=== PATIENT | female | born 1980 | race Caucasian/White ===

== ENCOUNTER → 2016-09-11 | Outpatient (REF) | payer OTHER | LOC: M LAB REF 12:56 | PROVIDERS: ATTEND Physician Assistant | DX: B33.8 Other specified viral diseases (principal) ==

== ENCOUNTER → 2017-01-10 | Outpatient (CLI) | payer OTHER ==
[2017-01-10 07:12] LABS: MEAN CORPUSCULAR HGB CONC 34.3 g/dl (32.0-36.5); MEAN CORPUSCULAR VOLUME 87.4 fl (80.0-96.0); RED CELL DISTRIBUTION WIDTH 12.1 % (11.5-14.5); WHITE BLOOD COUNT 6.8 K/mm3 (4.0-10.0)
[2017-01-10 07:40] LABS: ALBUMIN 3.6 GM/DL (3.2-5.2); ALBUMIN/GLOBULIN RATIO 0.92 (1.00-1.93); ALKALINE PHOSPHATASE 41 U/L (45-117); ALT/SGPT 15 U/L (12-78); ANION GAP 11 MEQ/L (8-16); AST/SGOT 5 U/L (15-37); BILIRUBIN,TOTAL 0.6 MG/DL (0.2-1.0); BLOOD UREA NITROGEN 13 MG/DL (7-18); CALCIUM LEVEL 8.5 MG/DL (8.5-10.1); CARBON DIOXIDE LEVEL 23 MEQ/L (21-32); CHLORIDE LEVEL 105 MEQ/L (98-107); CHOLESTEROL LEVEL 176 MG/DL (<200); CREATININE FOR GFR 0.83 MG/DL (0.55-1.02); GLOMERULAR FILTRATION RATE > 60.0 (>60); GLUCOSE, FASTING 105 MG/DL (70-105); POTASSIUM SERUM 4.2 MEQ/L (3.5-5.1); SODIUM LEVEL 139 MEQ/L (136-145); TOTAL PROTEIN 7.5 GM/DL (6.4-8.2); TRIGLYCERIDES LEVEL 140 MG/DL (<150)
== END ==
LOC: M LAB 06:37
PROVIDERS: ATTEND Nurse Practitioner Adult Health
DX: Z00.00 Encounter for general adult medical examination without abnormal findings (principal)

== ENCOUNTER → 2017-09-03 | Outpatient (REF) | payer OTHER | LOC: M LAB REF 11:47 | PROVIDERS: ATTEND Physician Assistant | DX: R50.9 Fever, unspecified (principal) ==

== ENCOUNTER → 2017-10-16 | Outpatient (CLI) | payer MEDICAID ==
[~2017-10-16] MED LIST: E-Z-GAS II EFFERVESCENT PACKET (SODIUM BICARB./CITRIC ACID/SIMETHICONE) As Ordered; E-Z-HD 98% w/w 340GM SUSP BTL As Ordered; E-Z-PAQUE 96% w/w SUSP 176GM BTL As Ordered
== END ==
LOC: M RAD 09:03
DX: J39.2 Other diseases of pharynx (principal); R05 Cough
CPT/HCPCS: 74241

== ENCOUNTER → 2017-11-04 | Outpatient (CLI) | payer OTHER, MEDICAID ==
[~2017-11-04] MED LIST changes: -E-Z-GAS II EFFERVESCENT PACKET (SODIUM BICARB./CITRIC ACID/SIMETHICONE) As Ordered; -E-Z-HD 98% w/w 340GM SUSP BTL As Ordered; -E-Z-PAQUE 96% w/w SUSP 176GM BTL As Ordered; +METHACHOLINE KIT (J7674) INH
== END ==
LOC: M CARPUL 12:46
DX: J39.2 Other diseases of pharynx (principal); R05 Cough
CPT/HCPCS: J7674

== ENCOUNTER 2018-08-13 03:48 | Emergency (ER) | payer OTHER, MEDICAID ==
[2018-08-13] MEDS: LevoFLOXacin 500 MG TABLET PO (05:25)
== END 2018-08-13 05:28 | disposition home or self-care (01) ==
LOC: M ED 03:48
DX: J01.90 Acute sinusitis, unspecified (principal); Z88.0 Allergy status to penicillin
CPT/HCPCS: 99282

== ENCOUNTER → 2018-10-06 | Outpatient (CLI) | payer OTHER ==
[~2018-10-06] MED LIST changes: +DESO1TAB5; +DIFL200T PO; +LEVA1TAB2 PO; -METHACHOLINE KIT (J7674) INH; +MUPI2OI
--- NOTE | 2018-10-06 16:34 | REP ---
MR angiography the brain without contrast: History: Positive family history of montero aneurysm . Technique: 3-D [id number] MR angiography of the brain is acquired in the usual fashion and maximal intensity projection images were generated in rotational format about the vertical and horizontal axes. In addition, source axial T1-weighted images are viewed in cine mode. MR angiographic findings: The distal vertebral arteries are patent and co-dominant. Basilar artery is a little tortuous but widely patent. The posterior cerebral and superior cerebellar vessels are normal and symmetric. The distal internal carotid arteries are unremarkable. Anterior and middle cerebral arteries appear intact. There is no visible montero aneurysm or arteriovenous malformation. Impression: Unremarkable MR angiography the brain. Electronically Signed by Carlos Boyle MD 10/06/2018 04:26 P
== END ==
LOC: M RAD 15:15
PROVIDERS: ATTEND Nurse Practitioner Adult Health
DX: I72.9 Aneurysm of unspecified site (principal)

== ENCOUNTER 2019-06-04 07:20 | Emergency (ER) | payer OTHER ==
[~2019-06-04] VITALS: Ht 170.2 cm; Wt 68.9 kg
[2019-06-04] MEDS ORDERED: CEPH500C (07:27)
[2019-06-04] MEDS ORDERED: FLUC150T (07:27)
[2019-06-04 08:42] VITALS: BP 125/78
== END 2019-06-04 09:02 | disposition home or self-care (01) ==
LOC: M ED 07:20
DX: S90.415A Abrasion, left lesser toe(s), initial encounter (principal); W22.09XA Striking against other stationary object, initial encounter; Y92.512 Supermarket, store or market as the place of occurrence of the external cause; Z88.0 Allergy status to penicillin; Z79.899 Other long term (current) drug therapy

== ENCOUNTER → 2019-10-04 | Outpatient (REF) | payer OTHER ==
[~2019-10-04] MED LIST changes: +CEPH500C; +FLUC150T
[2019-10-04 14:43] LABS: AMORPHOUS SEDIMENT SMALL (NEGATIVE); APPEARANCE, URINE CLEAR (CLEAR); BACTERIA, URINE AUTO NEGATIVE (NEGATIVE); BILIRUBIN, URINE AUTO NEGATIVE (NEGATIVE); BLOOD, URINE BLOOD NEGATIVE (NEGATIVE); COLOR, URINE YELLOW (YELLOW); GLUCOSE, URINE (UA) AUTO NEGATIVE (NEGATIVE); KETONE, URINE AUTO NEGATIVE (NEGATIVE); LEUKOCYTE ESTERASE, URINE AUTO TRACE (NEGATIVE); MUCUS, URINE SMALL (NEGATIVE); NITRITE, URINE AUTO NEGATIVE (NEGATIVE); PROTEIN, URINE AUTO NEGATIVE (NEGATIVE); RBC, URINE AUTO 0 /HPF (0-3); SPECIFIC GRAVITY URINE AUTO 1.027 (1.002-1.035); SQUAMOUS EPITHELIAL CELL UR AU 3 /HPF (0-6); UROBILINOGEN, URINE AUTO 0.2 mg/dL (0.0-2.0); WBC, URINE AUTO 3 /HPF (0-3)
== END ==
LOC: M LAB REF 14:12
PROVIDERS: ATTEND Physician Assistant Medical
DX: N39.0 Urinary tract infection, site not specified (principal)

== ENCOUNTER → 2019-10-23 | Outpatient (REF) | payer OTHER ==
[2019-10-23 14:35] LABS: APPEARANCE, URINE HAZY (CLEAR); BACTERIA, URINE AUTO NEGATIVE (NEGATIVE); BILIRUBIN, URINE AUTO NEGATIVE (NEGATIVE); BLOOD, URINE BLOOD NEGATIVE (NEGATIVE); COLOR, URINE YELLOW (YELLOW); GLUCOSE, URINE (UA) AUTO NEGATIVE (NEGATIVE); KETONE, URINE AUTO NEGATIVE (NEGATIVE); LEUKOCYTE ESTERASE, URINE AUTO NEGATIVE (NEGATIVE); MUCUS, URINE SMALL (NEGATIVE); NITRITE, URINE AUTO NEGATIVE (NEGATIVE); PROTEIN, URINE AUTO NEGATIVE (NEGATIVE); RBC, URINE AUTO 0 /HPF (0-3); SPECIFIC GRAVITY URINE AUTO 1.028 (1.002-1.035); SQUAMOUS EPITHELIAL CELL UR AU 3 /HPF (0-6); UROBILINOGEN, URINE AUTO 0.2 mg/dL (0.0-2.0); WBC, URINE AUTO 1 /HPF (0-3)
== END ==
LOC: M LAB REF 14:18
PROVIDERS: ATTEND Physician Assistant
DX: N39.0 Urinary tract infection, site not specified (principal)

== ENCOUNTER → 2020-05-10 | Outpatient (REF) | payer OTHER ==
[2020-05-10 18:51] LABS: APPEARANCE, URINE CLEAR (CLEAR); BACTERIA, URINE AUTO NEGATIVE (NEGATIVE); BILIRUBIN, URINE AUTO NEGATIVE (NEGATIVE); BLOOD, URINE BLOOD 1+ (NEGATIVE); COLOR, URINE YELLOW (YELLOW); GLUCOSE, URINE (UA) AUTO NEGATIVE (NEGATIVE); KETONE, URINE AUTO NEGATIVE (NEGATIVE); LEUKOCYTE ESTERASE, URINE AUTO NEGATIVE (NEGATIVE); NITRITE, URINE AUTO NEGATIVE (NEGATIVE); PROTEIN, URINE AUTO NEGATIVE (NEGATIVE); RBC, URINE AUTO 0 /HPF (0-3); SPECIFIC GRAVITY URINE AUTO 1.019 (1.002-1.035); SQUAMOUS EPITHELIAL CELL UR AU 3 /HPF (0-6); UROBILINOGEN, URINE AUTO 0.2 mg/dL (0.0-2.0); WBC, URINE AUTO 1 /HPF (0-3)
== END ==
LOC: M LAB REF 16:00
PROVIDERS: ATTEND Physician Assistant Medical
DX: N39.0 Urinary tract infection, site not specified (principal)

== ENCOUNTER → 2020-05-19 | Outpatient (REF) | payer OTHER | LOC: M LAB REF 08:15 | PROVIDERS: ATTEND Physician Assistant | DX: D18.01 Hemangioma of skin and subcutaneous tissue (principal) ==

== ENCOUNTER → 2020-06-20 | Outpatient (REF) | payer OTHER | LOC: M SFHCPLAZ 10:16 | PROVIDERS: ATTEND Nurse Practitioner Adult Health | DX: R35.0 Frequency of micturition (principal) ==

== ENCOUNTER → 2020-07-01 | Outpatient (CLI) | payer OTHER ==
[2020-07-01 11:16] LABS: HEMATOCRIT 40.4 % (36.0-47.0); HEMOGLOBIN 13.6 g/dl (12.0-15.5); MEAN CORPUSCULAR HEMOGLOBIN 29.2 pg (27.0-33.0); MEAN CORPUSCULAR HGB CONC 33.7 g/dl (32.0-36.5); MEAN CORPUSCULAR VOLUME 86.9 fl (80.0-96.0); PLATELET COUNT, AUTOMATED 277 10^3/uL (150-450); RED BLOOD COUNT 4.65 10^6/uL (4.00-5.40); WHITE BLOOD COUNT 6.9 10^3/uL (4.0-10.0)
[2020-07-01 11:44] LABS: ALBUMIN 3.5 GM/DL (3.2-5.2); ALT/SGPT 15 U/L (12-78); BILIRUBIN,TOTAL 0.4 MG/DL (0.2-1.0); BLOOD UREA NITROGEN 13 MG/DL (7-18); CALCIUM LEVEL 8.9 MG/DL (8.5-10.1); CARBON DIOXIDE LEVEL 27 MEQ/L (21-32); CHLORIDE LEVEL 106 MEQ/L (98-107); CHOLESTEROL LEVEL 174 MG/DL (<200); CHOLESTEROL RISK RATIO 2.047 (<5); CREATININE FOR GFR 0.88 MG/DL (0.55-1.30); GLOMERULAR FILTRATION RATE > 60.0 (>58); GLUCOSE, FASTING 125 MG/DL (70-100); HDL CHOLESTEROL 85 MG/DL (>40); LDL CHOLESTEROL 62 MG/DL (<100); NON-HDL-C 89 MG/DL; POTASSIUM SERUM 3.7 MEQ/L (3.5-5.1); SODIUM LEVEL 139 MEQ/L (136-145); TOTAL PROTEIN 7.1 GM/DL (6.4-8.2); TRIGLYCERIDES LEVEL 133 MG/DL (<150)
== END ==
LOC: M LAB 10:50
PROVIDERS: ATTEND Nurse Practitioner Adult Health
DX: Z00.00 Encounter for general adult medical examination without abnormal findings (principal)

== ENCOUNTER 2020-09-23 09:26 | Emergency (ER) | payer OTHER ==
[~2020-09-23] VITALS: Ht 170.2 cm; Wt 70.9 kg
[2020-09-23] MEDS ORDERED: DESO1TAB27 (09:37)
--- OUTSIDE RECORDS SUMMARY | 2020-09-23 09:37 | CCD ---
Author Author [facility] Organization [facility] Address Unknown Phone Unavailable Care Team Providers Care Production Staff Worker Name Role Phone TremayneAndreina david Unavailable PROBLEMS Type Condition ICD9-CM Code [id number] Code Onset Dates Condition S tatus SNOMED Code Notes Problem Migraine without aura and without status migrain osus, not intractable G43.009 Active 462359215 She is having mo re frequent headaches but not daily. Prophylaxis does not appear to be necessary but she needs rescue therapy. I will prescribe Maxalt to use as needed. Problem Seasonal allergic rhinitis, unspecified allergic rhinitis trigger J30.2 Active 361851073 She is having a flare of seasonal allergies associated with serous otitis bilaterally. She should use Flonase daily. Problem Cough R05 Active 34440651 Problem Recurrent sinusitis J32.9 Active 898665597 Problem Throat irritation J39.2 Active 139783754 Problem Mixed stress and urge urinary incontinence N39.46 Active 039757715 Problem Insomnia, unspecified type G47.00 Active 64115 2000 Problem Allergic conjunctivitis of both eyes H10.13 Act tamy 322822363 Problem Mild persistent asthma without complication J45.30 Active 098170571 Problem Aneurysm I72.9 Active 436603380 ALLERGIES Allergen (clinical drug ingredient) Drug/Non Drug Allergy do cumented on EMR Reaction Allergy Type Onset Date Status Penicillin (For Allergies Use Only) Rash Drug Allerg y Active ENCOUNTERS from 1979 to 2020-08-30 Encounter Location Date Provider Diagnosis [address] [address] Aug, Andreina Lopez IMMUNIZATIONS Vaccine Route Administration Date Status Influenza (6mo & up) Fluzone Unknown Jun 28, 2020 Oth ers SOCIAL HISTORY Tobacco Use: Social History Observation Description Date Details (start date - stop date) Never Smoker Sex Assigned At : Social History Observation Description Sex Assigned At Unknown Audit Question Answer Notes Total Score: 2 Interpretation: Alcohol Education Drug and Alcohol Question Answer Notes Total Score: 0 Interpretation: No problems reported Alcohol Screening: Question Answer Notes Did you have a drink containing alcohol in the past year? No Points 0 Interpretation Negative Tobacco Use: Question Answer Notes Are you a: never smoker REASON FOR REFERRAL No Information VITAL SIGNS No information MEDICATIONS Medication SIG (Take, Route, Frequency, Duration) Notes Start Da te End Date Status Omeprazole 40 MG 1 capsule 30 minutes before morning meal Orally Once a day for 30 day(s) Jun, Not-Taking Mupirocin 2 % 1 application topically to left nare bid for 30 days Sep, Not-Taking Maxalt-CIRCLE EDGER 10 MG 1 tablet Orally Once a day, dissolve on the tongue, as needed for headache for 30 days January, Active Ventolin HFA 108 (90 Base) MCG/ACT 2 puffs as needed I nhalation every 6 hrs for 30 day(s) May, Active Mircette 0.15-0.02/0.01 MG (21/5) 1 tablet Orally Once a day for 30 day(s) Active Cetirizine HCl 5 MG 1 tablet Orally once daily as needed for 30 days Active Ketotifen Fumarate 0.025 % 1 drop into both eyes Ophth almic Twice a day as needed for 30 days Jul, Active PROCEDURES No Information RESULTS No Results REASON FOR VISIT Sinus infection MEDICAL (GENERAL) HISTORY Type Description Date Medical History allergies, seasonal Medical History migraines Medical History urinary frequency Surgical History No Surgical history information Goals Section No Information Health Concerns No Information MEDICAL EQUIPMENT No Information MENTAL STATUS No Information FUNCTIONAL STATUS No Information ASSESSMENTS No Information PLAN OF TREATMENT Medication Medication Name Sig Start Date Stop Date Ketotifen Fumarate 0.025 % 1 drop into both eyes Ophth almic Twice a day as needed for 30 days Jul, Ventolin HFA 108 (90 Base) MCG/ACT 2 puffs as needed I nhalation every 6 hrs for 30 day(s) May, Insurance Providers Payer Name Payer Address Payer Phone Insured Name Patient Relati onship to Insured Coverage Start Date Coverage End Date [facility] [place] [address] [facility] [phone] LAURITA HOUGH self
--- OUTSIDE RECORDS SUMMARY | 2020-09-23 09:37 | CCD ---
Author Author [facility] Organization [facility] Address Unknown Phone Unavailable Care Team Providers Care Curriculum Development Manager Name Role Phone Christiano Mariscal Unavailable PROBLEMS Type Condition ICD9-CM Code [id number] Code Onset Dates Condition S tatus SNOMED Code Notes Problem Migraine without aura and without status migrain osus, not intractable G43.009 Active 823932185 She is having mo re frequent headaches but not daily. Prophylaxis does not appear to be necessary but she needs rescue therapy. I will prescribe Maxalt to use as needed. Problem Seasonal allergic rhinitis, unspecified allergic rhinitis trigger J30.2 Active 382157229 She is having a flare of seasonal allergies associated with serous otitis bilaterally. She should use Flonase daily. Problem Cough R05 Active 90570597 Problem Recurrent sinusitis J32.9 Active 403677191 Problem Throat irritation J39.2 Active 973297399 Problem Mixed stress and urge urinary incontinence N39.46 Active 903870698 Problem Insomnia, unspecified type G47.00 Active 76442 2000 Problem Allergic conjunctivitis of both eyes H10.13 Act tamy 891461058 Problem Mild persistent asthma without complication J45.30 Active 889018265 Problem Aneurysm I72.9 Active 452474445 ALLERGIES Allergen (clinical drug ingredient) Drug/Non Drug Allergy do cumented on EMR Reaction Allergy Type Onset Date Status Penicillin (For Allergies Use Only) Rash Drug Allerg y Active ENCOUNTERS from 1979 to 2020-07-14 Encounter Location Date Provider Diagnosis [facility] [address] [place] [address] Jun Christiano Mariscal Mixed stress and urge urinary incontinen ce N39.46 ; Nocturia R35.1 and Frequency of micturition R35.0 IMMUNIZATIONS Vaccine Route Administration Date Status Influenza [...] REASON FOR REFERRAL No Information VITAL SIGNS Weight 156.4 lbs Jun, Height 67 in Jun, BMI 24.49 kg/m2 Jun, Heart Rate 90 /min Jun, Respiratory Rate 18 /min Jun, Temperature 97.3 degrees Fahrenheit Jun, Oximetry 97 Jun, Blood pressure systolic 120 mm Hg Jun, Blood pressure diastolic 76 mm Hg Jun, MEDICATIONS Medication SIG (Take, Route, Frequency, Duration) Start Date En d Date Status Omeprazole 40 MG 1 capsule 30 minutes before morning meal Orally Once a day for 30 day(s) Jun, Not-Taking Ketotifen Fumarate 0.025 % 1 drop into both eyes Ophth almic Twice a day as needed for 30 days Jul, Active Mupirocin 2 % 1 application topically to left nare bid for 30 days Sep, Not-Taking Cetirizine HCl 5 MG 1 tablet Orally once daily as needed for 30 day s Active Mircette 0.15-0.02/0.01 MG (/) 1 tablet Orally Once a day for 30 day(s) Active Maxalt-SANDING MACHINE OPERATOR OR TENDER 10 MG 1 tablet Orally Once a day, dissolve on the tongue, as needed for headache for 30 days January, Active Ventolin HFA 108 (90 Base) MCG/ACT 2 puffs as needed I nhalation every 6 hrs for 30 day(s) May, Active PROCEDURES No Information RESULTS No Results REASON FOR VISIT urinary frequency MEDICAL (GENERAL) HISTORY Type Description Date Medical History allergies, seasonal Medical History migraines Medical History urinary frequency Surgical History No Surgical history information Goals Section No Information Health Concerns No Information MEDICAL EQUIPMENT No Information MENTAL STATUS No Information FUNCTIONAL STATUS No Information ASSESSMENTS Encounter Date Diagnosis Notes Jun, Frequency of micturition (ICD-10 - R35.0 ) Jun, Nocturia (ICD-10 - R35.1) Jun, Mixed stress and urge urinary incontinen ce (ICD-10 - N39.46) PLAN OF TREATMENT Medication Medication Name Sig Start Date Stop Date Ketotifen Fumarate 0.025 % 1 drop into both eyes Ophth almic Twice a day as needed for 30 days Jul, Treatment Notes Assessment Notes Clinical Notes Mixed stress and urge urinary incontinence Laurita will stat with a voiding diary and then office cysto to evaluate PVR, bladder abnormalities that may account for incontinence Treatment Notes Test Name Order Date Basic Metabolic Profile (BMP) 2020-07-14 Next Appt Details 2 Weeks Reason:cysto Follow Up:2 Weekscysto Insurance Providers Payer Name Payer Address Payer Phone Insured Name Patient Relati onship to Insured Coverage Start Date Coverage End Date [facility] [employer] [facility] [employer] [employer] [address] [facility] [phone] LAURITA HOUGH self
--- OUTSIDE RECORDS SUMMARY | 2020-09-23 09:37 | CCD ---
Author Author [facility] Organization [facility] Address Unknown Phone Unavailable Care Team Providers Care Accounts Receivable Representative Name Role Phone TremayneAndreina david Unavailable PROBLEMS Type Condition ICD9-CM Code [id number] Code Onset Dates Condition S tatus SNOMED Code Notes Problem Migraine without aura and without status migrain osus, not intractable G43.009 Active 698869026 She is having mo re frequent headaches but not daily. Prophylaxis does not appear to be necessary but she needs rescue therapy. I will prescribe Maxalt to use as needed. Problem Seasonal allergic rhinitis, unspecified allergic rhinitis trigger J30.2 Active 065144966 She is having a flare of seasonal allergies associated with serous otitis bilaterally. She should use Flonase daily. Problem Cough R05 Active 22679173 Problem Recurrent sinusitis J32.9 Active 810402993 Problem Throat irritation J39.2 Active 303138104 Problem Mixed stress and urge urinary incontinence N39.46 Active 217300812 Problem Insomnia, unspecified type G47.00 Active 21210 2000 Problem Allergic conjunctivitis of both eyes H10.13 Act tamy 805875301 Problem Mild persistent asthma without complication J45.30 Active 090206253 Problem Aneurysm I72.9 Active 490922893 ALLERGIES Allergen (clinical drug ingredient) Drug/Non Drug Allergy do cumented on EMR Reaction Allergy Type Onset Date Status Penicillin (For Allergies Use Only) Rash Drug Allerg y Active ENCOUNTERS from 1979 to 2020-07-12 Encounter Location Date Provider Diagnosis [address] [address] Jul, Andreina Lopez IMMUNIZATIONS Vaccine Route Administration Date [...] 30 day s Active Mircette 0.15-0.02/0.01 MG (/5) 1 tablet Orally Once a day for 30 day(s) Active Maxalt-KAITARA TARAKA 10 MG 1 tablet Orally Once a day, dissolve on the tongue, as needed for headache for 30 days January, Active Ventolin HFA 108 (90 Base) MCG/ACT 2 puffs as needed I nhalation every 6 hrs for 30 day(s) May, Active PROCEDURES No Information RESULTS No Results REASON FOR VISIT Zatidor eye drops MEDICAL (GENERAL) HISTORY Type Description Date Medical [...] day as needed for 30 days Jul, Insurance Providers Payer Name Payer Address Payer Phone Insured Name Patient Relati onship to Insured Coverage Start Date Coverage End Date [facility] [address] [facility] [phone] LAURITA HOUGH self
--- OUTSIDE RECORDS SUMMARY | 2020-09-23 09:37 | CCD ---
Author Author [facility] Organization [facility] Address Unknown Phone Unavailable Care Team Providers Care Supply Manager Name Role Phone GLADYS HADLEY Unavailable Unavailable Re-disclosure Warning The records that you are about to access may contain information from federally-assisted alcohol or drug abuse programs. If such information is present, then the following federally mandated warning applies: This information has been disclosed to you from records protected by federal confidentiality rules (42 CFR part 2). The federal rules prohibit you from making any further disclosure of this information unless further disclosure is expressly permitted by the written consent of the person to whom it pertains or as otherwise permitted by 42 CFR part 2. A general authorization for the release of medical or other information is NOT sufficient for this purpose. The Federal rules restrict any use of the information to criminally investigate or prosecute any alcohol or drug abuse patient.The records that you are about to access may contain highly sensitive health information, the redisclosure of which is protected by Article 27-F of the [facility] Public Health law. If you continue you may have access to information: Regarding HIV / AIDS; Provided by facilities licensed or operated by the [facility] Office of Mental Health; or Provided by the [facility] Office for People With Developmental Disabilities. If such information is present, then the following [facility] mandated warning applies: This information has been disclosed to you from confidential records which are protected by state law. State law prohibits you from making any further disclosure of this information without the specific written consent of the person to whom it pertains, or as otherwise permitted by law. Any unauthorized further disclosure in violation of state law may result in a fine or nursing home sentence or both. A general authorization for the release of medical or other information is NOT sufficient authorization for further disc losure. Allergies and Adverse Reactions Type Description Substance Reaction Status Data Source(s ) Drug allergy PENICILLIN PENICILLIN [facility] Family History Family Member Name Family Member Gender Family Member Status Date o f Status Description Data Source(s) Unknown Unknown Problem [facility] ) Encounters Encounter Providers Location Date Indications Data Source(s ) Unknown [address] [facility] [id number] 08/23/2020 12:00:00 AM EST eCW1 ([facility]) Unknown [address] [facility] [id number] 08/09/2020 12:00:00 AM EST [facility] Out[facility] Attender: [facility] 07/22/2020 03:40:00 PM EST [facility] Unknown [address] [facility] [id number] 07/11/2020 12:00:00 AM EST eCW1 ([facility]) Unknown [address] [facility] [place] [address] 07/07/2020 12:00:00 AM EDT eCW1 ([facility]) Outpatient [address] [facility] [address] 06/28/2020 12:00:00 AM EDT eCW1 ([facility] [place]) Outpatient [address] [facility] [address] 06/28/2020 12:00:00 AM EDT eCW1 ([facility] [place] 06/22/2020 01:37:01 PM EDT [facility] Outpatient Attender: [facility] 06/20/2020 10:32:00 AM EDT [facility] Out[facility] [address] [facility] [place] [address] 06/20/2020 12:00:00 AM EDT eCW1 ([facility]) [facility] [address] [facility] [address] 02/24/2020 12:00:00 AM EDT eCW1 ([facility]) [facility] [address] [facility] [address] 02/02/2020 12:00:00 AM EDT eCW1 ([facility]) [facility] [address] [facility] [address] 01/28/2020 12:00:00 AM EDT eCW1 ([facility]) Outpatient [facility]: [facility] 11/06/2019 12:00:08 AM [facility] Outpatient Attender: [facility] 11/05/2019 01:54:01 PM [facility] Immunizations Vaccine Date Status Description Data Source(s) New in 2011. IIV4 06/28/2020 09:14:00 AM EDT completed eCW1 ([facility]) New in 2011. IIV4 06/28/2020 09:14:00 AM EDT completed eCW1 ([facility]) New in 2011. IIV4 06/28/2020 09:14:00 AM EDT completed eCW1 ([facility]) New in 2011. IIV4 06/28/2020 09:14:00 AM EDT completed eCW1 ([facility]) New in 2011. IIV4 06/28/2020 09:14:00 AM EDT completed eCW1 ([facility]) New in 2011. IIV4 06/28/2020 09:14:00 AM EDT completed eCW1 ([facility]) Medications Medication Brand Name Start Date Product Form Dose Route Admi nistrative Instructions Pharmacy Instructions Status Indications Reaction Description Data Source(s) Volnea 28 Day Pack 0.15-0.02 mgx21 /0.01 mg x 5 DESOGE STREL-ETHINYL ESTRADIOL/ETHINYL ESTRADIOL 08/14/2020 12:00:00 AM EST tablet 84 TAKE ONE TABLET BY MOUTH EVERY DAY TAKE ONE TABLET BY MOUTH EVERY DAY SOLD: 08/14/2020 [facility] 90 mcg/actuation 08/10/2020 12:00:00 AM EST HFA aerosol inha ler 18 INHALE TWO PUFFS BY MOUTH EVERY 6 HOURS NEEDED INHALE TWO PUFFS BY MOUTH EVERY 6 HOURS NEEDED SOLD: 08/11/2020 [facility] Ketotifen 0.25 MG/ML Ophthalmic Solution Ketotifen Fum arate 0.025 % Ketotifen Fumarate 0.025 % 07/11/2020 12:00:00 AM EST a ctive Ketotifen Fumarate 0.025 % eCW1 ([facility]) Ketotifen 0.25 MG/ML Ophthalmic Solution Ketotifen Fum arate 0.025 % Ketotifen Fumarate 0.025 % 07/11/2020 12:00:00 AM EST a ctive Ketotifen Fumarate 0.025 % eCW1 ([facility]) Ketotifen 0.25 MG/ML Ophthalmic Solution Ketotifen Fum arate 0.025 % Ketotifen Fumarate 0.025 % 07/11/2020 12:00:00 AM EST a ctive Ketotifen Fumarate 0.025 % eCW1 ([facility]) Ketotifen 0.25 MG/ML Ophthalmic Solution Ketotifen Fum arate 0.025 % Ketotifen Fumarate 0.025 % 07/11/2020 12:00:00 AM EST a ctive Ketotifen Fumarate 0.025 % eCW1 ([facility]) 40 mg 06/28/2020 12:00:00 AM EDT capsule,delayed release (DR/EC) 30 TAKE ONE CAPSULE BY MOUTH EVERY DAY - 30 MINUTES BEFORE MORNING MEAL TAKE ONE CAPSULE BY MOUTH EVERY DAY - 30 MINUTES BEFORE MORNING MEAL SOLD: 06/30/2020 [facility] Omeprazole 40 MG Delayed Release Oral Capsule Omeprazole 40 MG 06/28/2020 12:00:00 AM EDT suspended Omepr azole 40 MG eCW1 ([facility]) 40 mg 06/28/2020 12:00:00 AM EDT capsule,delayed release (DR/EC) 30 TAKE ONE CAPSULE BY MOUTH EVERY DAY - 30 MINUTES BEFORE MORNING MEAL TAKE ONE CAPSULE BY MOUTH EVERY DAY - 30 MINUTES BEFORE MORNING MEAL SOLD: 08/11/2020 [facility] Omeprazole 40 MG Delayed Release Oral Capsule Omeprazole 40 MG 06/28/2020 12:00:00 AM EDT suspended Omepr azole 40 MG eCW1 ([facility]) Omeprazole 40 MG Delayed Release Oral Capsule Omeprazole 40 MG 06/28/2020 12:00:00 AM EDT suspended Omepr azole 40 MG eCW1 ([facility]) Omeprazole 40 MG Delayed Release Oral Capsule Omeprazole 40 MG 06/28/2020 12:00:00 AM EDT suspended Omepr azole 40 MG eCW1 ([facility]) Omeprazole 40 MG Delayed Release Oral Capsule Omeprazole 40 MG 06/28/2020 12:00:00 AM EDT suspended Omepr azole 40 MG eCW1 ([facility]) Omeprazole 40 MG Delayed Release Oral Capsule Omeprazole 40 MG 06/28/2020 12:00:00 AM EDT suspended Omepr azole 40 MG eCW1 ([facility]) 150 mg 06/20/2020 12:00:00 AM EDT tablet 2 TAKE ONE TABLET BY MOUTH TODAY, REPEAT INN 10 DAYS DIRECTED TAKE ONE TABLET BY MOUTH TODAY, REPEAT I NN 10 DAYS DIRECTED SOLD: 06/20/2020 [facility] Fluconazole 150 MG Oral Tablet [Diflucan] Diflucan 150 MG Di flucan 150 MG 06/20/2020 12:00:00 AM EDT 1.0 {tablet} active Diflucan 150 MG eCW1 ([facility]) doxycycline hyclate 100 MG Oral Capsule DOXYCYCLINE HYCLATE 06/20/2020 12:00:00 AM EDT capsule 20 TAKE ONE CAPSULE BY MOUTH TW ICE A DAY FOR 10 DAYS TAKE ONE CAPSULE BY MOUTH TWICE A DAY FOR 10 DAYS SOLD: 06/20/2020 [facility] Doxycycline Monohydrate 100 MG Oral Tablet Doxycycline Monoh ydrate 100 MG 06/20/2020 12:00:00 AM EDT 1.0 {tablet} active Doxycycline Monohydrate 100 MG eCW1 ([facility]) 0.15-0.02 mgx21 /0.01 mg x 5 05/23/2020 12:00:00 AM EDT tabl et 84 TAKE ONE TABLET BY MOUTH EVERY DAY TAKE ONE TABLET BY MOUTH EVERY DAY SOLD: 05/30/2020 [facility] 150 mg 05/13/2020 12:00:00 AM EDT tablet 2 TAKE ONE TABLET BY MOUTH ONCE DAILY FOR 1 DAY TAKE ONE TABLET BY MOUTH ONCE DAILY FOR 1 DAY SOLD: 05/21/20 20 [facility] 150 mg 05/13/2020 12:00:00 AM EDT tablet 2 TAKE ONE TABLET BY MOUTH ONCE DAILY FOR 1 DAY TAKE ONE TABLET BY MOUTH ONCE DAILY FOR 1 DAY SOLD: 05/30/20 20 [facility] 150 mg 05/10/2020 12:00:00 AM EDT tablet 2 TAKE ONE TABLET BY MOUTH FOR ONE DOSE DIRECTED TAKE ONE TABLET BY MOUTH FOR ONE DOSE DIRECTED SOLD : 05/10/2020 [facility] Cephalexin 500 MG Oral Capsule CEPHALEXIN 05/10/2020 12:00:00 AM EDT capsule 21 TAKE ONE CAPSULE BY MOUTH THREE TIMES A DAY FOR 7 DAYS TAKE ONE CAPSULE BY MOUTH THREE TIMES A DAY FOR 7 DAYS SOLD: 05/10/2020 [facility] 0.1 % 03/01/2020 12:00:00 AM EDT ointment 15 APPLY TO AFFECTED AREA(S) OF BOTH FEET TWO TIMES A DAY FOR 10 DAYS APPLY TO AFFECTED AREA(S) OF BOTH FEET T WO TIMES A DAY FOR 10 DAYS SOLD: 03/04/2020 [facility] 0.025 % (0.035 %) 02/03/2020 12:00:00 AM EDT drops 5 INSTILL 1 DROP INTO THE AFFECTED EYE(S) EVERY 8 HOURS NEEDED FOR ALLERGIES INSTILL 1 DROP INTO THE AFFECTED EYE(S) EVERY 8 HOURS NEEDED FOR ALLERGIES SOLD: 02/05/2020 [facility] 5 mg 02/03/2020 12:00:00 AM EDT tablet 30 TAKE ONE TABLET BY MOUTH EVERY DAY NEEDED TAKE ONE TABLET BY MOUTH EVERY DAY NEEDED SOLD: 02/05/2020 [facility] 10 mg 02/03/2020 12:00:00 AM EDT tablet,disintegrating 9 PLACE ONE TABLET UNDER THE TONGUE EVERY DAY, NEEDED FOR HEADACHE PLACE ONE TABLET UNDER THE TONGUE EVERY DAY, NEEDED FOR HEADACHE SOLD: 03/04/2020 [facility] 10 mg 02/03/2020 12:00:00 AM EDT tablet,disintegrating 9 PLACE ONE TABLET UNDER THE TONGUE EVERY DAY, NEEDED FOR HEADACHE PLACE ONE TABLET UNDER THE TONGUE EVERY DAY, NEEDED FOR HEADACHE SOLD: 02/05/2020 [facility] 5 mg 02/03/2020 12:00:00 AM EDT tablet 30 TAKE ONE TABLET BY MOUTH EVERY DAY NEEDED TAKE ONE TABLET BY MOUTH EVERY DAY NEEDED SOLD: 03/04/2020 [facility] rizatriptan 10 MG Disintegrating Oral Tablet [Maxalt] Maxalt-MOBILE ARCHITECT 10 MG Maxalt- MOBILE ARCHITECT 10 MG 02/02/2020 12:00:00 AM EDT 1.0 {tablet} ac tive Maxalt-MOBILE ARCHITECT 10 MG eCW1 ([facility]) rizatriptan 10 MG Disintegrating Oral Tablet [Maxalt] Maxalt-MOBILE ARCHITECT 10 MG Maxalt- MOBILE ARCHITECT 10 MG 02/02/2020 12:00:00 AM EDT 1.0 {tablet} ac tive Maxalt-MOBILE ARCHITECT 10 MG eCW1 ([facility]) rizatriptan 10 MG Disintegrating Oral Tablet [Maxalt] Maxalt-MOBILE ARCHITECT 10 MG Maxalt- MOBILE ARCHITECT 10 MG 02/02/2020 12:00:00 AM EDT 1.0 {tablet} ac tive Maxalt-MOBILE ARCHITECT 10 MG eCW1 ([facility]) rizatriptan 10 MG Disintegrating Oral Tablet [Maxalt] Maxalt-MOBILE ARCHITECT 10 MG Maxalt- MOBILE ARCHITECT 10 MG 02/02/2020 12:00:00 AM EDT 1.0 {tablet} ac tive Maxalt-MOBILE ARCHITECT 10 MG eCW1 ([facility]) rizatriptan 10 MG Disintegrating Oral Tablet [Maxalt] Maxalt-MOBILE ARCHITECT 10 MG Maxalt- MOBILE ARCHITECT 10 MG 02/02/2020 12:00:00 AM EDT 1.0 {tablet} ac tive Maxalt-MOBILE ARCHITECT 10 MG eCW1 ([facility]) rizatriptan 10 MG Disintegrating Oral Tablet [Maxalt] Maxalt-MOBILE ARCHITECT 10 MG Maxalt- MOBILE ARCHITECT 10 MG 02/02/2020 12:00:00 AM EDT 1.0 {tablet} ac tive Maxalt-MOBILE ARCHITECT 10 MG eCW1 ([facility]) rizatriptan 10 MG Disintegrating Oral Tablet [Maxalt] Maxalt-MOBILE ARCHITECT 10 MG Maxalt- MOBILE ARCHITECT 10 MG 02/02/2020 12:00:00 AM EDT 1.0 {tablet} ac tive Maxalt-MOBILE ARCHITECT 10 MG eCW1 ([facility]) 10 mg 01/29/2020 12:00:00 AM EDT tablet 30 TAKE ONE TABLET BY MOUTH EVERY DAY TAKE ONE TABLET BY MOUTH EVERY DAY SOLD: 03/04/2020 [facility] 10 mg 01/29/2020 12:00:00 AM EDT tablet 30 TAKE ONE TABLET BY MOUTH EVERY DAY TAKE ONE TABLET BY MOUTH EVERY DAY SOLD: 02/05/2020 [facility] 0.025 % (0.035 %) 01/18/2020 12:00:00 AM EDT drops 5 INSTILL ONE DROP IN EACH EYE TWICE A DAY NEEDED FOR ITCHING INSTILL ONE DROP IN EACH EYE TWICE A DAY NEEDED FOR ITCHING SOLD: 06/20/2020 [facility] 0.025 % (0.035 %) 01/18/2020 12:00:00 AM EDT drops 5 INSTILL ONE DROP IN EACH EYE TWICE A DAY NEEDED FOR ITCHING INSTILL ONE DROP IN EACH EYE TWICE A DAY NEEDED FOR ITCHING SOLD: 02/05/2020 [facility] 0.025 % (0.035 %) 01/18/2020 12:00:00 AM EDT drops 5 INSTILL ONE DROP IN EACH EYE TWICE A DAY NEEDED FOR ITCHING INSTILL ONE DROP IN EACH EYE TWICE A DAY NEEDED FOR ITCHING SOLD: 04/01/2020 [facility] 0.025 % (0.035 %) 01/18/2020 12:00:00 AM EDT drops 5 INSTILL ONE DROP IN EACH EYE TWICE A DAY NEEDED FOR ITCHING INSTILL ONE DROP IN EACH EYE TWICE A DAY NEEDED FOR ITCHING SOLD: 05/10/2020 [facility] 0.025 % (0.035 %) 01/18/2020 12:00:00 AM EDT drops 5 INSTILL ONE DROP IN EACH EYE TWICE A DAY NEEDED FOR ITCHING INSTILL ONE DROP IN EACH EYE TWICE A DAY NEEDED FOR ITCHING SOLD: 03/04/2020 [facility] 20 mg 12/30/2019 12:00:00 AM EDT tablet 5 TAKE ONE TABLET BY MOUTH EVERY DAY TAKE ONE TABLET BY MOUTH EVERY DAY SOLD: 12/30/2019 [facility] 150 mg 10/26/2019 12:00:00 AM EST tablet 2 TAKE ONE TABLET BY MOUTH ONCE, MAY REPEAT IN 48 HOURS TAKE ONE TABLET BY MOUTH ONCE, MAY REPEAT IN 48 HOURS SOLD: 10/30/2019 [facility] 500 mg 10/23/2019 12:00:00 AM EST capsule 21 TAKE ONE CAPSULE BY MOUTH THREE TIMES A DAY FOR 7 DAYS TAKE ONE CAPSULE BY MOUTH THREE TIMES A DAY FOR 7 DAYS SOLD: 10/23/2019 [facility] 150 mg 10/23/2019 12:00:00 AM EST tablet 2 TAKE ONE TABLET BY MOUTH NOW FOR 1 DOSE, THEN TAKE 2ND TABLET IN 48 HOURS TAKE ONE TABLET BY MOUTH NOW FOR 1 DOSE, THEN TAKE 2ND TABLET IN 48 HOURS SOLD: 10/23/2019 [facility] 1 gram 10/04/2019 12:00:00 AM EST tablet 5 TAKE ONE TABLET BY MOUTH EVERY DAY FOR 5 DAYS FOR OUTBREAK TAKE ONE TABLET BY MOUTH EVERY DAY FOR 5 DAYS FOR OUTBREAK SOLD: 12/26/2019 [facility] 1 gram 10/04/2019 12:00:00 AM EST tablet 5 TAKE ONE TABLET BY MOUTH EVERY DAY FOR 5 DAYS FOR OUTBREAK TAKE ONE TABLET BY MOUTH EVERY DAY FOR 5 DAYS FOR OUTBREAK SOLD: 11/26/2019 [facility] 1 gram 10/04/2019 12:00:00 AM EST tablet 5 TAKE ONE TABLET BY MOUTH EVERY DAY FOR 5 DAYS FOR OUTBREAK TAKE ONE TABLET BY MOUTH EVERY DAY FOR 5 DAYS FOR OUTBREAK SOLD: 10/23/2019 [facility] 200 mg 10/04/2019 12:00:00 AM EST tablet 6 TAKE ONE TABLET BY MOUTH THREE TIMES A DAY FOR 2 DAYS TAKE ONE TABLET BY MOUTH THREE TIMES A DAY FOR 2 DAYS SOLD: 10/04/2019 [facility] 150 mg 10/04/2019 12:00:00 AM EST tablet 2 TAKE ONE TABLET BY MOUTH ONCE WEEKLY TAKE ONE TABLET BY MOUTH ONCE WEEKLY SOLD: 10/04/2019 [facility] 1 gram 10/04/2019 12:00:00 AM EST tablet 5 TAKE ONE TABLET BY MOUTH EVERY DAY FOR 5 DAYS FOR OUTBREAK TAKE ONE TABLET BY MOUTH EVERY DAY FOR 5 DAYS FOR OUTBREAK SOLD: 10/04/2019 [facility] 100 mg 10/04/2019 12:00:00 AM EST capsule 14 TAKE ONE CAPSULE BY MOUTH TWICE A DAY FOR 7 DAYS TAKE ONE CAPSULE BY MOUTH TWICE A DAY FOR 7 DAYS SOLD: 10/04/2019 [facility] 1 gram 10/04/2019 12:00:00 AM EST tablet 5 TAKE ONE TABLET BY MOUTH EVERY DAY FOR 5 DAYS FOR OUTBREAK TAKE ONE TABLET BY MOUTH EVERY DAY FOR 5 DAYS FOR OUTBREAK SOLD: 04/01/2020 [facility] 800-160 mg 08/09/2019 12:00:00 AM EST tablet 20 TAKE ONE TABLET BY MOUTH TWICE A DAY FOR 10 DAYS TAKE ONE TABLET BY MOUTH TWICE A DAY FOR 10 DAYS SOLD: 08/09/2019 [facility] 150 mg 08/09/2019 12:00:00 AM EST tablet 2 TAKE ONE TABLET BY MOUTH ONCE, TAKE A SECOND TABLET IN 48 HOURS TAKE ONE TABLET BY MOUTH ONCE, TAKE A SE COND TABLET IN 48 HOURS SOLD: 08/09/2019 [facility] 0.025 % (0.035 %) 07/19/2019 12:00:00 AM EST drops 5 INSTILL ONE DROP IN EACH EYE TWO TIMES A DAY NEEDED FOR ITCHING INSTILL ONE DROP IN EACH EYE TWO TIMES A DAY NEEDED FOR ITCHING SOLD: 11/26/2019 [facility] 0.025 % (0.035 %) 07/19/2019 12:00:00 AM EST drops 5 INSTILL ONE DROP IN EACH EYE TWO TIMES A DAY NEEDED FOR ITCHING INSTILL ONE DROP IN EACH EYE TWO TIMES A DAY NEEDED FOR ITCHING SOLD: 09/15/2019 [facility] 0.025 % (0.035 %) 07/19/2019 12:00:00 AM EST drops 5 INSTILL ONE DROP IN EACH EYE TWO TIMES A DAY NEEDED FOR ITCHING INSTILL ONE DROP IN EACH EYE TWO TIMES A DAY NEEDED FOR ITCHING SOLD: 12/26/2019 [facility] 0.025 % (0.035 %) 07/19/2019 12:00:00 AM EST drops 5 INSTILL ONE DROP IN EACH EYE TWO TIMES A DAY NEEDED FOR ITCHING INSTILL ONE DROP IN EACH EYE TWO TIMES A DAY NEEDED FOR ITCHING SOLD: 08/21/2019 [facility] 0.025 % (0.035 %) 07/19/2019 12:00:00 AM EST drops 5 INSTILL ONE DROP IN EACH EYE TWO TIMES A DAY NEEDED FOR ITCHING INSTILL ONE DROP IN EACH EYE TWO TIMES A DAY NEEDED FOR ITCHING SOLD: 10/23/2019 [facility] 0.025 % (0.035 %) 07/19/2019 12:00:00 AM EST drops 5 INSTILL ONE DROP IN EACH EYE TWO TIMES A DAY NEEDED FOR ITCHING INSTILL ONE DROP IN EACH EYE TWO TIMES A DAY NEEDED FOR ITCHING SOLD: 07/25/2019 [facility] 0.15-0.02 mgx21 /0.01 mg x 5 07/11/2019 12:00:00 AM EDT tabl et 84 TAKE ONE TABLET BY MOUTH EVERY DAY TAKE ONE TABLET BY MOUTH EVERY DAY SOLD: 09/28/2019 [facility] 0.15-0.02 mgx21 /0.01 mg x 5 07/11/2019 12:00:00 AM EDT tabl et 84 TAKE ONE TABLET BY MOUTH EVERY DAY TAKE ONE TABLET BY MOUTH EVERY DAY SOLD: 12/26/2019 [facility] 0.15-0.02 mgx21 /0.01 mg x 5 07/11/2019 12:00:00 AM EDT tabl et 84 TAKE ONE TABLET BY MOUTH EVERY DAY TAKE ONE TABLET BY MOUTH EVERY DAY SOLD: 03/18/2020 [facility] 1 gram 06/24/2019 12:00:00 AM EDT tablet 5 TAKE ONE TABLET BY MOUTH EVERY DAY FOR 5 DAYS FOR OUTBREAK TAKE ONE TABLET BY MOUTH EVERY DAY FOR 5 DAYS FOR OUTBREAK SOLD: 09/28/2019 [facility] 1 gram 06/24/2019 12:00:00 AM EDT tablet 5 TAKE ONE TABLET BY MOUTH EVERY DAY FOR 5 DAYS FOR OUTBREAK TAKE ONE TABLET BY MOUTH EVERY DAY FOR 5 DAYS FOR OUTBREAK SOLD: 09/15/2019 [facility] 1 gram 06/24/2019 12:00:00 AM EDT tablet 5 TAKE ONE TABLET BY MOUTH EVERY DAY FOR 5 DAYS FOR OUTBREAK TAKE ONE TABLET BY MOUTH EVERY DAY FOR 5 DAYS FOR OUTBREAK SOLD: 08/09/2019 [facility] 1 gram 06/24/2019 12:00:00 AM EDT tablet 5 TAKE ONE TABLET BY MOUTH EVERY DAY FOR 5 DAYS FOR OUTBREAK TAKE ONE TABLET BY MOUTH EVERY DAY FOR 5 DAYS FOR OUTBREAK SOLD: 08/02/2019 [facility] 1 gram 06/24/2019 12:00:00 AM EDT tablet 5 TAKE ONE TABLET BY MOUTH EVERY DAY FOR 5 DAYS FOR OUTBREAK TAKE ONE TABLET BY MOUTH EVERY DAY FOR 5 DAYS FOR OUTBREAK SOLD: 09/04/2019 [facility] Insurance Providers Payer name Policy type / Coverage type Policy ID Covered alliance party ID Covered alliance party's relationship to mccullough Policy [place] Plan Information [facility] PLAN [facility] [id number] Managed Care - [facility] Community Plan P [id number] S [id number] Medicaid S [id number] S [id number] Managed Care - [facility] Community Plan P UNAVAILABLE S UNAVAILABLE Medicaid S UNAVAILABLE S UNAVAILA BLE [facility] PLAN [facility] [id number] SP [id number] [facility] O [id number] S [id number] [facility] [id number] [facility]-Medicaid [id number] [facility] Health Maintenance Organization ([facility]) [id number] Self [id number] [facility]-Medicaid [id number] [facility]-Medicaid [id number] [facility]-Medicaid [id number] ANS-Medicaid [id number] [facility]-Medicaid [id number] [facility]-Medicaid [id number] ANSI-Medicaid [id number] ANSI-Medicaid [id number] MEDICAID [id number] SP [id number] ANSI-Medicaid [id number] ANSI-Medicaid [id number] ANSI-Medicaid [id number] ANSI-Medicaid [id number] ANSI-Medicaid [id number] ANSI-Medicaid [id number] ANSI-Medicaid [id number] ANSI-Medicaid [id number] [facility] COMMUN[facility] PLAN [facility] [id number] SP [id number] MEDICAID M [id number] S [id number] [facility] PL[facility] [id number] SP [id number] [facility] [id number] SP [id number] MEDICAID [id number] SP [id number] SELF PAY UNAVAILABLE SP UNAVAILA BLE [id number] Problems, Conditions, and Diagnoses Code Display Name Description Problem Type Effective Dates Data Source(s) N39.46 [id number] Mixed stress and urge urinary incontinenc e Problem 06/28/2020 12:00:00 AM EDT eCW1 ([facility]) Results ID Date Data Source [id number] 06/22/2020 12:27:51 PM EDT [facility] Patient History Medical History:Family H istory:Social/Personal History: Smoking Status: never smokerProblem list reviewed during this update.No known problems.Current Medications: * CONTROL Medication list reviewed during this update.Current Allergies: PENICILLIN (Critical)Allergy list reviewed during this update. Dental Chart: Procedures:Type - CDT Code - Description B - (D0274) Bitewings, 4 radiographic images (Performed by Sharon Galan RDH) B - (D1110) Prophylaxis, adult (Performed by Sharon Galan RDH) B - (D0120) Periodic oral evaluation - established patient (Performed by Randa Rojas DDS) Chart Notes:dona (Jun 22 2020 12:49PM): [facility] with patient- updated. No problems or concerns today. Adult prophy- handscaled, kittitian- mint prophy paste, floss, 4 BW'sOH-Patient brushes twice/day and sometimes flossing regularlyLT gen marginal biofilm and marginal/introproximal calculus on LA. Marginal tissue is pink with no bleeding. OHI- Advise to brush 2x a day and floss everyday. Brushing at home is great, but went over proper flossing with her. Patient is cooperative. NV- 6 month recall/filling- we are going to try it, but it may need a RC or ExoRaso Sharon DIAZ by dona (06/22/2020 12:49 PM): ; taurus (Jun 22 2020 1:36PM): [facility]). CC: none. Reviewed Xrays. Exam: caries detected. OCS: WNL, IO/ EO completed, No significant hard findings upon clinical exam.Additional PPE requirements due to COVID-19 in the dental setting, N95, surgical mask, hair covering, gown and shieldExplain to pt # 2 decay is large and way up apcally and filling may not be satisfactory but DDS will try. At worst # 2 may need exo.Pt was cooperative. OHI given Referral: N/A NV:recallSharon Galan RDH by taurus (06/22/2020 1:36 PM): Tooth Notes and Watches:- Tooth 18 Watch: occlusal Sharon Galan RDH by dona (11/05/2019 10:24 AM): - Tooth 3 Watch: mesial Sahron Galan RDH by dona (11/05/2019 10:24 AM): Assessment & Plan Medications: CONTROLAllergies:PENICILLIN (Critical) Name Value Range Interpretation Code Description Data Nina rce(s) Supporting Document(s) ID Date Data Source [id number] 11/05/2019 09:34:47 AM [facility] Vital SignsBlood Pressure: 120/88 Patient History Medical History:Family History:Social/Personal History: Smoking Status: never smokerProblem list reviewed during this update.No known problems.Current Medications: * CONTROL Medication list reviewed during this update.No known medications.Current Allergies: PENICILLIN (Critical)Allergy list reviewed during this update.No known allergies. Dental Chart: Procedures:Type - CDT Code - Description B - (D0274) Bitewings, 4 radiographic images (Performed by Sharon Galan RDH) B - (D0150) Comprehensive oral evaluation - new or established patient (Performed by Felicia Hernandez DMD) B - (D1110) Prophylaxis, adult (Performed by Sharon Galan RDH) B - (D0220) Intraoral, periapical, first radiographic image on Tooth # 6 (Performed by Sharon Galan RDH) Treatments:Type - CDT Code - Description T - (D2150) Amalgam, 2 surfaces, primary or permanent on Tooth # 2 on Tooth Surface OM (Performed by Sharon Galan RDH) Existing:Type - CDT Code - Description[E] Decay On #2 Surface MO[E] Amalgam Confucianism On #2 Surface MO, #3 Surface DOL, #30 Surface OB, #31 Surface O[E] Missing - [place] Only/Root Tip On #4 Surface O Region X[E] Resin- Based Composite - Direct On #12 Surface DO, #13 Surface MOD, #14 Surface MODBL, #18 Surface DOBL, #19 Surface OL, #20 Surface DO, #21 Surface O, #5 Surface DO, #9 Surface FL[E] Missing - [place] and Root On #1 Surface O Region XR, #15 Surface O Region XR, #16 Surface O Region XR, #17 Surface O Region XR, #32 Surface O Region XR Chart Notes:gladys (Nov 05 2019 1:53PM): [facility] CC: none. Reviewed Xrays. Exam: caries detected, discussed about #14 sensitivity and the possible need of RCT . OCS: WNL IO/ EO completed, No significant hard findings upon clinical exam Pt was cooperative.OHI givenReferral: N/ANV:fillingRasSharon santiago RDH by gladys (11/05/2019 1:53 PM): ; sraso (Nov 05 2019 11:39AM): [facility] with NEW patient- updated medical history. Her tooth on the UL is sensitive. Adult prophy- handscaled, kittitian- mint prophy paste, floss, 4 BW's, 1 PA, C exam 1-3 mm probing. OH-Patient brushes twice/day and NOT flossing regularlyLT gen marginal biofilm and marginal/introproximal calculus on LA. Marginal tissue is pink with no bleeidng. OHI- Advise to brush 2x a day and floss everyday. Went over brushing along the gum line josiah in the lingual of lucero. and flossing with regular floss more than floss picks. Patient is cooperative. NV- 6 month recall/fillingSharon Martinez RDH by dona (11/05/2019 11:39 AM): Tooth Notes and Watches:- Tooth 18 Watch: occlusal Sharon Galan RDH by dona (11/05/2019 10:24 AM): - Tooth 3 Watch: mesial Sharon Galan RDH by dona (11/05/2019 10:24 AM): Assessment & Plan Medications: CONTROLMedication Changes:Added: * CONTROLAllergies:PENICILLIN (Critical) Name Value Range Interpretation Code Description Data Nina rce(s) Supporting Document(s) Procedure Social History Code Duration Value Status Description Data Source(s ) Smoking 06/28/2020 12:00:00 AM EDT Never Smoker completed Never S moker eCW1 ([facility]) Smoking 06/28/2020 12:00:00 AM EDT Never Smoker completed Never S moker eCW1 ([facility]) Smoking 06/28/2020 12:00:00 AM EDT Never Smoker completed Never S moker eCW1 ([facility]) Smoking 06/28/2020 12:00:00 AM EDT Never Smoker completed Never S moker eCW1 ([facility]) Smoking 06/28/2020 12:00:00 AM EDT Never Smoker completed Never S moker eCW1 ([facility]) Smoking 06/28/2020 12:00:00 AM EDT Never Smoker completed Never S moker eCW1 ([facility]) Smoking 06/27/2020 12:00:00 AM EDT Never Smoker completed Never S moker eCW1 ([facility]) Vital Signs ID Date Data Source UNK Name Value Range Interpretation Code Description Data Source(s) Diastolic blood pressure 76 mm[Hg] 76 mm[Hg] eCW1 ([facility]) Systolic blood pressure 120 mm[Hg] 120 mm[Hg] e CW1 ([facility]) Body temperature 97.3 [degF] 97.3 [degF] eCW1 ( [facility]) Respiratory rate 18 /min 18 /min eCW1 ([facility]) Heart rate 90 /min 90 /min eCW1 ([facility]) Body mass index (BMI) [Ratio] 24.49 kg/m2 24.49 kg/m2 eCW1 ([facility]) Body height 67 [in_i] 67 [in_i] eCW1 ([facility]) Body weight 156.4 [lb_av] 156.4 [lb_av] eCW1 ([facility]) Diastolic blood pressure 80 mm[Hg] 80 mm[Hg] eCW1 ([facility]) Systolic blood pressure 110 mm[Hg] 110 mm[Hg] e CW1 ([facility]) Body temperature 97.8 [degF] 97.8 [degF] eCW1 ( [facility]) Respiratory rate 18 /min 18 /min eCW1 ([facility]) Heart rate 80 /min 80 /min eCW1 ([facility]) Body mass index (BMI) [Ratio] 24.56 kg/m2 24.56 kg/m2 eCW1 ([facility]) Body height 67 [in_i] 67 [in_i] eCW1 ([facility]) Body weight 156.8 [lb_av] 156.8 [lb_av] eCW1 ([facility]) Diastolic blood pressure 80 mm[Hg] 80 mm[Hg] eCW1 ([facility]) Body height 67 [in_i] 67 [in_i] eCW1 ([facility]) Body weight 156.8 [lb_av] 156.8 [lb_av] eCW1 ([facility]) Systolic blood pressure 118 mm[Hg] 118 mm[Hg] e CW1 ([facility]) Body temperature 97 [degF] 97 [degF] eCW1 ([facility]) Respiratory rate 18 /min 18 /min eCW1 ([facility]) Heart rate 82 /min 82 /min eCW1 ([facility]) Body mass index (BMI) [Ratio] 24.56 kg/m2 24.56 kg/m2 eCW1 ([facility]) Patient Treatment Plan of Care Planned Activity Planned Date Details Description Data Source (s) Ketotifen 0.25 MG/ML Ophthalmic Solution 07/11/2020 12:00:00 AM EST eCW1 ([facility]) Ketotifen 0.25 MG/ML Ophthalmic Solution 07/11/2020 12:00:00 AM EST eCW1 ([facility]) Ketotifen 0.25 MG/ML Ophthalmic Solution 07/11/2020 12:00:00 AM EST eCW1 ([facility]) Ketotifen 0.25 MG/ML Ophthalmic Solution 07/11/2020 12:00:00 AM EST eCW1 ([facility]) Fluconazole 150 MG Oral Tablet [Diflucan] 06/20/2020 12:00:00 AM ED T eCW1 ([facility]) Doxycycline Monohydrate 100 MG Oral Tablet 06/20/2020 12:00:00 AM E DT eCW1 ([facility])
--- OUTSIDE RECORDS SUMMARY | 2020-09-23 09:37 | CCD ---
Author Author [facility] Organization [facility] Address Unknown Phone Unavailable Care Team Providers Care All Round Logger Name Role Phone Andreina Lopez Unavailable PROBLEMS Type Condition ICD9-CM Code [id number] Code Onset Dates Condition S tatus SNOMED Code Notes Problem Migraine without aura and without status migrain osus, not intractable G43.009 Active 425930351 She is having mo re frequent headaches but not daily. Prophylaxis does not appear to be necessary but she needs rescue therapy. I will prescribe Maxalt to use as needed. Problem Seasonal allergic rhinitis, unspecified allergic rhinitis trigger J30.2 Active 017724212 She is having a flare of seasonal allergies associated with serous otitis bilaterally. She should use Flonase daily. Problem Cough R05 Active 79431169 Problem Recurrent sinusitis J32.9 Active 066601455 Problem Throat irritation J39.2 Active 257751469 Problem Mixed stress and urge urinary incontinence N39.46 Active 973301616 Problem Insomnia, unspecified type G47.00 Active 56565 2000 Problem Allergic conjunctivitis of both eyes H10.13 Act tamy 088061390 Problem Mild persistent asthma without complication J45.30 Active 700636901 Problem Aneurysm I72.9 Active 390437717 ALLERGIES Allergen (clinical drug ingredient) Drug/Non Drug Allergy do cumented on EMR Reaction Allergy Type Onset Date Status Penicillin (For Allergies Use Only) Rash Drug Allerg y Active ENCOUNTERS from 1979 to 2020-07-02 Encounter Location Date Provider Diagnosis [address] [address] Jun, Andreina Lopez Wellness examination Z00.00 ; Dark emesi s K92.0 ; Migraine without aura and without status migrainosus, not intractable G43.009 ; Seasonal allergic rhinitis, unspecified allergic rhinitis trigger J30.2 ; Insomnia, unspecified type G47.00 ; Urinary frequency R35.0 ; Mild persistent asthma without complication J45.30 ; Screening mammogram, encounter for Z12.31 and Immunization refused Z28.21 IMMUNIZATIONS Vaccine Route Administration Date Status Influenza [...] FOR REFERRAL No Information VITAL SIGNS Weight 156.8 lbs Jun, Height 67 in Jun, BMI 24.56 kg/m2 Jun, Heart Rate 80 /min Jun, Respiratory Rate 18 /min Jun, Temperature 97.8 degrees Fahrenheit Jun, Oximetry 99% Jun, Blood pressure systolic 110 mm Hg Jun, Blood pressure diastolic 80 mm Hg Jun, MEDICATIONS Medication SIG (Take, Route, Frequency, Duration) Start Date En d Date Status Omeprazole 40 MG 1 capsule 30 minutes before morning meal Orally Once a day for 30 day(s) Jun, Not-Taking Mupirocin 2 % 1 application topically to left nare bid for 30 days Sep, Not-Taking Zaditor 0.025% INSTILL ONE DROP IN EACH EYE TWICE A DAY NEEDED FOR ITCHING as needed for 30 days Active Cetirizine HCl 5 MG 1 tablet Orally once daily as needed for 30 day s Active Mircette 0.15-0.02/0.01 MG (27/01) 1 tablet Orally Once a day for 30 day(s) Active Maxalt-NETBACKUP ENGINEER 10 MG 1 tablet Orally Once a day, dissolve on the tongue, as needed for headache for 30 days January, Active Ventolin HFA 108 (90 Base) MCG/ACT 2 puffs as needed I nhalation every 6 hrs for 30 day(s) May, Active PROCEDURES No Information RESULTS No Results REASON FOR VISIT AWV MEDICAL (GENERAL) HISTORY Type Description Date Medical History allergies, seasonal Medical History migraines Medical History urinary frequency Surgical History No Surgical history information Goals Section No Information Health Concerns No Information MEDICAL EQUIPMENT No Information MENTAL STATUS No Information FUNCTIONAL STATUS No Information ASSESSMENTS Encounter Date Diagnosis Notes Jun, Seasonal allergic rhinitis, unspecified allergic rhinitis trigger (ICD-10 - J30.2) Jun, Migraine without aura and wi thout status migrainosus, not intractable (ICD-10 - G43.009) Jun, Urinary frequency (ICD-10 - R35.0) Jun, Insomnia, unspecified type (ICD-10 - G47 .00) Jun, Dark emesis (ICD-10 - K92.0) Jun, Wellness examination (ICD-10 - Z00.00) Jun, Screening mammogram, encounter for (ICD- 10 - Z12.31) Jun, Mild persistent asthma without complicat ion (ICD-10 - J45.30) Jun, Immunization refused (ICD-10 - Z28.21) PLAN OF TREATMENT Treatment Notes Assessment Notes Clinical Notes Wellness examination First annual wellne ss in several years since he has episodic visits Dark emesis Will start on omepra zole 40 mg by mouth daily, discussed risks and benefits with patient, refer to GI to be's evaluated questionable scope Migraine without aura and without status migrainosus, not in tractable States the only time she is getting migraines now is around her cycle and she deals with it Seasonal allergic rhinitis, unspecified allergic rhinitis tr igger Uses vabi-wzl-xmrdbcf products at times Insomnia, unspecified type Related to ch anging shifts 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, 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 Urinary frequency Has an upcoming appo intment at urology services to be evaluated Immunization refused refuses flu vaciine Treatment Notes Test Name Order Date Comprehensive Metabolic Profile (CMP) 2020-07-02 CBC - Complete Blood Count 2020-07-02 TSH 2020-07-02 LIPID PANEL (CARDIAC RISK) 2020-07-02 DIGITAL MAMMO SCREENING BILAT 2020-07-02 Next Appt Details 6 Months Andreina routine visit Reason: Provider Name:Ramona Diez, 10:00:00 AM, [address], [place], [address], Insurance Providers Payer Name Payer Address Payer Phone Insured Name Patient Relati onship to Insured Coverage Start Date Coverage End Date [facility] COMMUNITY PLAN [facility] [address] [facility] [phone] LAURITA HOUGH self
--- OUTSIDE RECORDS SUMMARY | 2020-09-23 09:37 | CCD ---
Author Author [facility] Organization [facility] Address Unknown Phone Unavailable Care Team Providers Care Call Center Agent Name Role Phone Andreina Lopez Unavailable PROBLEMS Type Condition ICD9-CM Code [id number] Code Onset Dates Condition S tatus SNOMED Code Notes Problem Throat irritation J39.2 Active 009785086 Problem Migraine without aura and without status migrain osus, not intractable G43.009 Active 388531455 She is having mo re frequent headaches but not daily. Prophylaxis does not appear to be necessary but she needs rescue therapy. I will prescribe Maxalt to use as needed. Problem Seasonal allergic rhinitis, unspecified allergic rhinitis trigger J30.2 Active 494351133 She is having a flare of seasonal allergies associated with serous otitis bilaterally. She should use Flonase daily. Problem Aneurysm I72.9 Active 435525227 Problem Recurrent sinusitis J32.9 Active 563167260 Problem Cough R05 Active 05546110 Problem Insomnia, unspecified type G47.00 Active 76048 2000 Problem Allergic conjunctivitis of both eyes H10.13 Act tamy 734913804 Problem Mild persistent asthma without complication J45.30 Active 792794787 ALLERGIES Allergen (clinical drug ingredient) Drug/Non Drug Allergy do cumented on EMR Reaction Allergy Type Onset Date Status Penicillin (For Allergies Use Only) Rash Drug Allerg y Active ENCOUNTERS from 1979 to 2020-06-27 Encounter Location Date Provider Diagnosis [address] [address] Jun, Andreina Servage Urinary frequency R35.0 IMMUNIZATIONS No Information SOCIAL HISTORY Tobacco Use: Social History Observation [...] Jun, BMI 24.56 kg/m2 Jun, Heart Rate 82 /min Jun, Respiratory Rate 18 /min Jun, Temperature 97 degrees Fahrenheit Jun, Oximetry 97% Jun, Blood pressure systolic 118 mm Hg Jun, Blood pressure diastolic 80 mm Hg Jun, MEDICATIONS Medication SIG (Take, Route, Frequency, Duration) Start Date En d Date Status Mircette 0.15-0.02/0.01 MG (27/01) 1 tablet Orally Once a day for 30 day(s) Active Doxycycline Monohydrate 100 MG 1 tablet Orally bid for 10 day(s) Jun, Active Zaditor 0.025% INSTILL ONE DROP IN EACH EYE TWICE A DAY NEEDED FOR ITCHING as needed for 30 days Active Ventolin HFA 108 (90 Base) MCG/ACT 2 puffs as needed I nhalation every 6 hrs for 30 day(s) May, Active Maxalt-MANAGER POOL 10 MG 1 tablet Orally Once a day, dissolve on the tongue, as needed for headache for 30 days January, Active Cetirizine HCl 5 MG 1 tablet Orally once daily as needed for 30 day s Active Diflucan 150 MG 1 tablet Orally as directed 1 today then repeat x 1 in 10 day for 2 days Jun, Active Mupirocin 2 % 1 application topically to left nare bid for 30 days Sep, Active PROCEDURES No Information RESULTS No Results REASON FOR VISIT urinary incontinence MEDICAL (GENERAL) HISTORY Type Description Date Medical History allergies, seasonal Medical History migraines Surgical History No Surgical history information Goals Section No Information Health Concerns No Information MEDICAL EQUIPMENT No Information MENTAL STATUS No Information FUNCTIONAL STATUS No Information ASSESSMENTS Encounter Date Diagnosis Notes Jun, Urinary frequency (ICD-10 - R35.0) PLAN OF TREATMENT Medication Medication Name Sig Start Date Stop Date Doxycycline Monohydrate 100 MG 1 tablet Orally bid for 10 day(s) Jun, Diflucan 150 MG 1 tablet Orally as directed 1 today then repeat x 1 in 10 day for 2 days Jun, Treatment Notes Assessment Notes Clinical Notes Urinary frequency Discussed with cristo milner that urine cultures dated 05/10/2020, 10/23/2019, 10/04/2019 were all negative and that she did not have it UTI on those dates. When she went to urgent care.Will refer to urology services for further examination and treatment. States her youngest daughter and her oldest daughter having the same issues.Will treat empirically today discussed risk and benefits of medication with patient Treatment Notes Test Name Order Date URINE CULTURE 2020-06-27 Urinalysis, no micro 2020-06-27 Next Appt Details andreina 06/28 routine exam Reason: Provider Name:Andreina Lopez, 07:30:00 AM, [address] [place] [address], [phone], Provider Name:Christiano Mariscal, 2020-06-28 10:30:00 AM, [address] [place] [address], [phone], Insurance Providers Payer Name Payer Address Payer Phone Insured Name Patient Relati onship to Insured Coverage Start Date Coverage End Date [facility] COMMUNITY PLAN [facility] [address] [facility] [phone] LAURITA HOUGH self
--- OUTSIDE RECORDS SUMMARY | 2020-09-23 09:37 | CCD ---
Author Author [facility] Organization [facility] Address Unknown Phone Unavailable Care Team Providers Care Outdoor Fitness Trainer Name Role Phone Andreina Lopez Unavailable PROBLEMS Type Condition ICD9-CM Code SAV25-HE Code Onset Dates Condition S tatus SNOMED Code Notes Problem Migraine without aura and without status migrain osus, not intractable G43.009 Active 816580019 She is having mo re frequent headaches but not daily. Prophylaxis does not appear to be necessary but she needs rescue therapy. I will prescribe Maxalt to use as needed. Problem Seasonal allergic rhinitis, unspecified allergic rhinitis trigger J30.2 Active 145625095 She is having a flare of seasonal allergies associated with serous otitis bilaterally. She should use Flonase daily. Problem Cough R05 Active 70490329 Problem Recurrent sinusitis J32.9 Active 862699325 Problem Throat irritation J39.2 Active 258476983 Problem Mixed stress and urge urinary incontinence N39.46 Active 970013697 Problem Insomnia, unspecified type G47.00 Active 23853 2000 Problem Allergic conjunctivitis of both eyes H10.13 Act tamy 786391597 Problem Mild persistent asthma without complication J45.30 Active 064543168 Problem Aneurysm I72.9 Active 828964402 ALLERGIES Allergen (clinical drug ingredient) Drug/Non Drug Allergy do cumented on EMR Reaction Allergy Type Onset Date Status Penicillin (For Allergies Use Only) Rash Drug Allerg y Active ENCOUNTERS from 1979 to 2020-08-11 Encounter Location Date Provider Diagnosis [address] [address] Aug, Andreina Lopez Mild persistent asthma without complicat ion J45.30 IMMUNIZATIONS Vaccine Route Administration Date Status Influenza [...] nare bid for 30 days Sep, Not-Taking Maxalt-FINANCIAL ASSOCIATE 10 MG 1 tablet Orally Once a [...] Information RESULTS No Results REASON FOR VISIT ventolin MEDICAL (GENERAL) HISTORY Type Description Date Medical History allergies, seasonal Medical History migraines Medical History urinary frequency Surgical History No Surgical history information Goals Section No Information Health Concerns No Information MEDICAL EQUIPMENT No Information MENTAL STATUS No Information FUNCTIONAL STATUS No Information ASSESSMENTS Encounter Date Diagnosis Assessment Notes Treatment Notes Treatm ent Clinical Notes Aug, Mild persistent asthma without complication (ICD -10 - J45.30) PLAN OF TREATMENT Medication Medication Name Sig [...] Insured Coverage Start Date Coverage End Date ON LICENSE OF [facility] COMMUNITY PLAN [facility] [address] [facility] [phone] LAURITA HOUGH self
--- OUTSIDE RECORDS SUMMARY | 2020-09-23 09:37 | CCD ---
Author Author [facility] Organization [facility] Address Unknown Phone Unavailable Care Team Providers Care Histological Illustrator Name Role Phone Rg Ramona Unavailable PROBLEMS Type Condition ICD9-CM Code UTO10-MC Code Onset Dates Condition S tatus SNOMED Code Notes Problem Migraine without aura and without status migrain osus, not intractable G43.009 Active 030167515 She is having mo re frequent headaches but not daily. Prophylaxis does not appear to be necessary but she needs rescue therapy. I will prescribe Maxalt to use as needed. Problem Seasonal allergic rhinitis, unspecified allergic rhinitis trigger J30.2 Active 468247465 She is having a flare of seasonal allergies associated with serous otitis bilaterally. She should use Flonase daily. Problem Cough R05 Active 81704820 Problem Recurrent sinusitis J32.9 Active 001953031 Problem Throat irritation J39.2 Active 747476463 Problem Mixed stress and urge urinary incontinence N39.46 Active 546588224 Problem Insomnia, unspecified type G47.00 Active 83659 2000 Problem Allergic conjunctivitis of both eyes H10.13 Act tamy 078033979 Problem Mild persistent asthma without complication J45.30 Active 954487923 Problem Aneurysm I72.9 Active 203067279 ALLERGIES Allergen (clinical drug ingredient) Drug/Non Drug Allergy do cumented on EMR Reaction Allergy Type Onset Date Status Penicillin (For Allergies Use Only) Rash Drug Allerg y Active ENCOUNTERS from 1979 to 2020-07-07 Encounter Location Date Provider Diagnosis [facility] [address] [place] [address] Jun Ramona Diez IMMUNIZATIONS Vaccine Route Administration Date Status Influenza [...] Once a day for 30 day(s) Active Maxalt-PRIMARY SPECIAL EDUCATION TEACHER 10 MG 1 tablet Orally Once a day, dissolve on the tongue, as needed for headache for 30 days January, Active Ventolin HFA 108 (90 Base) MCG/ACT 2 puffs as needed I nhalation every 6 hrs for 30 day(s) May, Active PROCEDURES No Information RESULTS No Results REASON FOR VISIT 07/08/2020 appt MEDICAL (GENERAL) HISTORY Type Description Date Medical History allergies, seasonal Medical History migraines Medical History urinary frequency Surgical History No Surgical history information Goals Section No Information Health Concerns No Information MEDICAL EQUIPMENT No Information MENTAL STATUS No Information FUNCTIONAL STATUS No Information ASSESSMENTS No Information PLAN OF TREATMENT Next Appt Details Provider Name:Ramona Diez, 10:00:00 AM, [address], [place], [address], Insurance Providers Payer Name Payer Address Payer Phone Insured Name Patient Relati onship to Insured Coverage Start Date Coverage End Date [facility] [address] [facility] [phone] LAURITA HOUGH self
--- OUTSIDE RECORDS SUMMARY | 2020-09-23 10:07 | CCD ---
Author Author [facility] Organization [facility] Address Unknown Phone Unavailable Care Team Providers Care Civil Engineer Land [employer] Name Role Phone GLADYS HADLEY Unavailable Unavailable [...] is protected by Article 27-F of the [facility] Public Health law. If you continue you may have access to information: Regarding HIV / AIDS; Provided by facilities licensed or operated by the [facility] Office of Mental Health; or Provided by the [facility] Office for People With Developmental Disabilities. If such information is present, then the following [facility] mandated warning applies: This information has [...] law may result in a fine or shelter sentence or both. A general authorization for the release of medical or other information is NOT sufficient authorization for further disc losure. Allergies and Adverse Reactions Type Description Substance Reaction Status Data Source(s ) Drug allergy PENICILLIN PENICILLIN [facility] Family History Family Member Name Family Member Gender Family Member Status Date o f Status Description Data Source(s) Unknown Unknown Problem [facility] ) Encounters Encounter Providers Location Date Indications Data Source(s ) Unknown [address] [facility] [id number] 08/23/2020 12:00:00 AM EST eCW1 ([facility]) Unknown [address] [facility] [id number] 08/09/2020 12:00:00 AM EST [facility]CW1 ([facility]) [facility]: [facility] 07/22/2020 03:40:00 PM EST [facility] Unknown [address] [facility] [id number] 07/11/2020 12:00:00 AM EST eCW1 ([facility]) Unknown [address] [facility] [place] [address] 07/07/2020 12:00:00 AM EDT eCW1 ([facility]) Outpatient [address] [facility] [id number] 06/28/2020 12:00:00 AM EDT eCW1 ([facility]) Outpatient [address] [facility] [id number] 06/28/2020 12:00:00 AM EDT eCW1 ([facility]) [facility] 06/22/2020 01:37:01 PM EDT [facility] Outpatient Attender: [facility] 06/20/2020 10:32:00 AM EDT [facility] [place] [address] [facility] [address] 06/20/2020 12:00:00 AM EDT eCW1 ([facility]) [facility] [address] [facility] [address] 02/24/2020 12:00:00 AM EDT eCW1 ([facility]) [facility] [address] [facility] [address] 02/02/2020 12:00:00 AM EDT eCW1 ([facility]) [facility] [address] [facility] [address] 01/28/2020 12:00:00 AM EDT eCW1 ([facility]) Outpatient Attender: [facility] 11/06/2019 12:00:08 AM [facility] Outpatient Attender: [facility] 11/05/2019 01:54:01 PM [facility] Immunizations Vaccine Date Status Description Data Source(s) New in 2011. IIV4 06/28/2020 09:14:00 AM EDT completed eCW1 ([facility]) New in 2011. IIV4 06/28/2020 09:14:00 AM EDT completed eCW1 ([facility]) New in 2011. IIV4 06/28/2020 09:14:00 AM EDT completed eCW1 ([facility]) New in 2011. IIV4 06/28/2020 09:14:00 AM EDT completed eCW1 ([facility]) New in 2011. IIV4 06/28/2020 09:14:00 AM EDT completed eCW1 ([facility]) New in 2011. IIV4 06/28/2020 09:14:00 AM EDT completed eCW1 ([facility]) Medications Medication Brand Name Start Date Product [...] a ctive Ketotifen Fumarate 0.025 % eCW1 ([facility]) Ketotifen 0.25 MG/ML Ophthalmic Solution Ketotifen Fum arate 0.025 % Ketotifen Fumarate 0.025 % 07/11/2020 12:00:00 AM EST a ctive Ketotifen Fumarate 0.025 % eCW1 ([facility]) Ketotifen 0.25 MG/ML Ophthalmic Solution Ketotifen Fum arate 0.025 % Ketotifen Fumarate 0.025 % 07/11/2020 12:00:00 AM EST a ctive Ketotifen Fumarate 0.025 % eCW1 ([facility]) Ketotifen 0.25 MG/ML Ophthalmic Solution Ketotifen Fum arate 0.025 % Ketotifen Fumarate 0.025 % 07/11/2020 12:00:00 AM EST a ctive Ketotifen Fumarate 0.025 % eCW1 ([facility]) 40 mg 06/28/2020 12:00:00 AM EDT capsule,delayed release (DR/EC) 30 TAKE ONE CAPSULE BY MOUTH EVERY DAY - 30 MINUTES BEFORE MORNING MEAL TAKE ONE CAPSULE BY MOUTH EVERY DAY - 30 MINUTES BEFORE MORNING MEAL SOLD: 06/30/2020 [facility] Omeprazole 40 MG Delayed Release Oral Capsule Omeprazole 40 MG 06/28/2020 12:00:00 AM EDT suspended Omepr azole 40 MG eCW1 ([facility]) 40 mg 06/28/2020 12:00:00 AM EDT capsule,delayed release (DR/EC) 30 TAKE ONE CAPSULE BY MOUTH EVERY DAY - 30 MINUTES BEFORE MORNING MEAL TAKE ONE CAPSULE BY MOUTH EVERY DAY - 30 MINUTES BEFORE MORNING MEAL SOLD: 08/11/2020 [facility] Omeprazole 40 MG Delayed Release Oral Capsule Omeprazole 40 MG 06/28/2020 12:00:00 AM EDT suspended Omepr azole 40 MG eCW1 ([facility]) Omeprazole 40 MG Delayed Release Oral Capsule Omeprazole 40 MG 06/28/2020 12:00:00 AM EDT suspended Omepr azole 40 MG eCW1 ([facility]) Omeprazole 40 MG Delayed Release Oral Capsule Omeprazole 40 MG 06/28/2020 12:00:00 AM EDT suspended Omepr azole 40 MG eCW1 ([facility]) Omeprazole 40 MG Delayed Release Oral Capsule Omeprazole 40 MG 06/28/2020 12:00:00 AM EDT suspended Omepr azole 40 MG eCW1 ([facility]) Omeprazole 40 MG Delayed Release Oral Capsule Omeprazole 40 MG 06/28/2020 12:00:00 AM EDT suspended Omepr azole 40 MG eCW1 ([facility]) 150 mg 06/20/2020 12:00:00 AM EDT tablet 2 TAKE ONE TABLET BY MOUTH TODAY, REPEAT INN 10 DAYS DIRECTED TAKE ONE TABLET BY MOUTH TODAY, REPEAT I NN 10 DAYS DIRECTED SOLD: 06/20/2020 [facility] Fluconazole 150 MG Oral Tablet [Diflucan] Diflucan 150 MG Di flucan 150 MG 06/20/2020 12:00:00 AM EDT 1.0 {tablet} active Diflucan 150 MG eCW1 ([facility]) doxycycline hyclate 100 MG Oral Capsule DOXYCYCLINE HYCLATE 06/20/2020 12:00:00 AM EDT capsule 20 TAKE ONE CAPSULE BY MOUTH TW ICE A DAY FOR 10 DAYS TAKE ONE CAPSULE BY MOUTH TWICE A DAY FOR 10 DAYS SOLD: 06/20/2020 [facility] Doxycycline Monohydrate 100 MG Oral Tablet Doxycycline Monoh ydrate 100 MG 06/20/2020 12:00:00 AM EDT 1.0 {tablet} active Doxycycline Monohydrate 100 MG eCW1 ([facility]) 0.15-0.02 mgx21 /0.01 mg x 5 05/23/2020 [...] rizatriptan 10 MG Disintegrating Oral Tablet [Maxalt] Maxalt-WAITER/WAITRESS HEAD 10 MG Maxalt- WAITER/WAITRESS HEAD 10 MG 02/02/2020 12:00:00 AM EDT 1.0 {tablet} ac tive Maxalt-WAITER/WAITRESS HEAD 10 MG eCW1 ([facility]) rizatriptan 10 MG Disintegrating Oral Tablet [Maxalt] Maxalt-WAITER/WAITRESS HEAD 10 MG Maxalt- WAITER/WAITRESS HEAD 10 MG 02/02/2020 12:00:00 AM EDT 1.0 {tablet} ac tive Maxalt-WAITER/WAITRESS HEAD 10 MG eCW1 ([facility]) rizatriptan 10 MG Disintegrating Oral Tablet [Maxalt] Maxalt-WAITER/WAITRESS HEAD 10 MG Maxalt- WAITER/WAITRESS HEAD 10 MG 02/02/2020 12:00:00 AM EDT 1.0 {tablet} ac tive Maxalt-WAITER/WAITRESS HEAD 10 MG eCW1 ([facility]) rizatriptan 10 MG Disintegrating Oral Tablet [Maxalt] Maxalt-WAITER/WAITRESS HEAD 10 MG Maxalt- WAITER/WAITRESS HEAD 10 MG 02/02/2020 12:00:00 AM EDT 1.0 {tablet} ac tive Maxalt-WAITER/WAITRESS HEAD 10 MG eCW1 ([facility]) rizatriptan 10 MG Disintegrating Oral Tablet [Maxalt] Maxalt-WAITER/WAITRESS HEAD 10 MG Maxalt- WAITER/WAITRESS HEAD 10 MG 02/02/2020 12:00:00 AM EDT 1.0 {tablet} ac tive Maxalt-WAITER/WAITRESS HEAD 10 MG eCW1 ([facility]) rizatriptan 10 MG Disintegrating Oral Tablet [Maxalt] Maxalt-WAITER/WAITRESS HEAD 10 MG Maxalt- WAITER/WAITRESS HEAD 10 MG 02/02/2020 12:00:00 AM EDT 1.0 {tablet} ac tive Maxalt-WAITER/WAITRESS HEAD 10 MG eCW1 ([facility]) rizatriptan 10 MG Disintegrating Oral Tablet [Maxalt] Maxalt-WAITER/WAITRESS HEAD 10 MG Maxalt- WAITER/WAITRESS HEAD 10 MG 02/02/2020 12:00:00 AM EDT 1.0 {tablet} ac tive Maxalt-WAITER/WAITRESS HEAD 10 MG eCW1 ([facility]) 10 mg 01/29/2020 12:00:00 AM EDT tablet [...] FOR 5 DAYS FOR OUTBREAK SOLD: 08/02/2019 [facility] 1 gram 06/24/2019 12:00:00 AM [...] relationship to mccullough Policy Mccullough Plan Information [facility] [id number] Managed Care - [facility] Community Plan P [id number] S [id number] Medicaid S [id number] S [id number] Managed Care - [facility] Community Plan P UNAVAILABLE S UNAVAILABLE Medicaid S UNAVAILABLE S UNAVAILA BLE [facility] [id number] SP [id number] [facility] O [id number] S [id number] [facility]-Medicaid [id number] [facility]-Medicaid [id number] [facility] Health Maintenance Organization ([employer]) [id number] Self [id number] [facility]-Medicaid [id number] [facility]-Medicaid [id number] [facility]-Medicaid [id number] ANS-Medicaid [id number] [facility]-Medicaid [id number] [facility]-Medicaid [id number] ANSI-Medicaid [id number] ANSI-Medicaid [id number] MEDICAID [id number] SP [id number] ANSI-Medicaid [id number] ANSI-Medicaid [id number] ANSI-Medicaid [id number] ANSI-Medicaid [id number] ANSI-Medicaid [id number] ANSI-Medicaid [id number] ANSI-Medicaid [id number] ANSI-Medicaid [id number] [facility] [id number] SP [id number] MEDICAID M [id number] S [id number] [facility] [id number] SP [id number] [facility] [id number] SP [id number] MEDICAID [id number] SP [id number] SELF PAY UNAVAILABLE SP UNAVAILA BLE [id number] Problems, Conditions, and Diagnoses Code Display Name Description Problem Type Effective Dates Data Source(s) N39.46 [id number] Mixed stress and urge urinary incontinenc e Problem 06/28/2020 12:00:00 AM EDT eCW1 ([facility]) Results ID Date Data Source [id number] 06/22/2020 12:27:51 PM EDT [facility] Patient History Medical History:Family H istory:Social/Personal History: [...] Chart Notes:dona (Jun 22 2020 12:49PM): [facility] with patient- updated. No problems or concerns today. Adult prophy- handscaled, burmese- mint prophy paste, floss, 4 BW'sOH-Patient brushes [...] ; taurus (Jun 22 2020 1:36PM): [facility](-). CC: none. Reviewed Xrays. Exam: caries detected. [...] rce(s) Supporting Document(s) ID Date Data Source [id number] 11/05/2019 09:34:47 AM [facility] Vital SignsBlood Pressure: 120/88 Patient History Medical [...] Description[E] Decay On #2 Surface MO[E] Amalgam Hinduism On #2 Surface MO, #3 Surface DOL, #30 Surface OB, #31 Surface O[E] Missing - [place] Only/Root Tip On #4 Surface O Region X[E] Resin- Based Composite - Direct On #12 Surface DO, #13 Surface MOD, #14 Surface MODBL, #18 Surface DOBL, #19 Surface OL, #20 Surface DO, #21 Surface O, #5 Surface DO, #9 Surface FL[E] Missing - [place] and Root On #1 Surface O Region XR, #15 Surface O Region XR, #16 Surface O Region XR, #17 Surface O Region XR, #32 Surface O Region XR Chart Notes:gladys (Nov 05 2019 1:53PM): [facility]). CC: none. Reviewed Xrays. Exam: caries detected, discussed about #14 sensitivity and the possible need of RCT . OCS: WNL IO/ EO completed, No significant hard findings upon clinical exam Pt was cooperative.OHI givenReferral: N/ANV:fillingRasSharon santiago RDH by gladys (11/05/2019 1:53 PM): ; sraso (Nov 05 2019 11:39AM): [facility] with NEW patient- updated medical history. Her tooth on the UL is sensitive. Adult prophy- handscaled, burmese- mint prophy paste, floss, 4 BW's, 1 [...] Never Smoker completed Never S moker eCW1 ([facility]) Smoking 06/28/2020 12:00:00 AM EDT Never Smoker completed Never S moker eCW1 ([facility]) Smoking 06/28/2020 12:00:00 AM EDT Never Smoker completed Never S moker eCW1 ([facility]) Smoking 06/28/2020 12:00:00 AM EDT Never Smoker completed Never S moker eCW1 ([facility]) Smoking 06/28/2020 12:00:00 AM EDT Never Smoker completed Never S moker eCW1 ([facility]) Smoking 06/28/2020 12:00:00 AM EDT Never Smoker completed Never S moker eCW1 ([facility]) Smoking 06/27/2020 12:00:00 AM EDT Never Smoker completed Never S moker eCW1 ([facility]) Vital Signs ID Date Data Source UNK Name Value Range Interpretation Code Description Data Source(s) Diastolic blood pressure 76 mm[Hg] 76 mm[Hg] eCW1 ([facility]) Systolic blood pressure 120 mm[Hg] 120 mm[Hg] e CW1 ([facility]) Body temperature 97.3 [degF] 97.3 [degF] eCW1 ( [facility]) Respiratory rate 18 /min 18 /min eCW1 ([facility]) Heart rate 90 /min 90 /min eCW1 ([facility]) Body mass index (BMI) [Ratio] 24.49 kg/m2 24.49 kg/m2 eCW1 ([facility]) Body height 67 [in_i] 67 [in_i] eCW1 ([facility]ending sale to [facility]) Body weight 156.4 [lb_av] 156.4 [lb_av] eCW1 ([facility]) Diastolic blood pressure 80 mm[Hg] 80 mm[Hg] eCW1 ([facility]) Systolic blood pressure 110 mm[Hg] 110 mm[Hg] e CW1 ([facility]) Body temperature 97.8 [degF] 97.8 [degF] eCW1 ( [facility]) Respiratory rate 18 /min 18 /min eCW1 ([facility]) Heart rate 80 /min 80 /min eCW1 ([facility]) Body mass index (BMI) [Ratio] 24.56 kg/m2 24.56 kg/m2 eCW1 ([facility]) Body height 67 [in_i] 67 [in_i] eCW1 ([facility]) Body weight 156.8 [lb_av] 156.8 [lb_av] eCW1 ([facility]) Diastolic blood pressure 80 mm[Hg] 80 mm[Hg] eCW1 ([facility]) Body height 67 [in_i] 67 [in_i] eCW1 ([facility]) Body weight 156.8 [lb_av] 156.8 [lb_av] eCW1 ([facility]) Systolic blood pressure 118 mm[Hg] 118 mm[Hg] e CW1 ([facility]) Body temperature 97 [degF] 97 [degF] eCW1 ([facility]) Respiratory rate 18 /min 18 /min eCW1 ([facility]) Heart rate 82 /min 82 /min eCW1 ([facility]) Body mass index (BMI) [Ratio] 24.56 kg/m2 24.56 kg/m2 eCW1 ([facility]) Patient Treatment Plan of Care Planned Activity Planned Date Details Description Data Source (s) Ketotifen 0.25 MG/ML Ophthalmic Solution 07/11/2020 12:00:00 AM EST eCW1 ([facility]) Ketotifen 0.25 MG/ML Ophthalmic Solution 07/11/2020 12:00:00 AM EST eCW1 ([facility]) Ketotifen 0.25 MG/ML Ophthalmic Solution 07/11/2020 12:00:00 AM EST eCW1 ([facility]) Ketotifen 0.25 MG/ML Ophthalmic Solution 07/11/2020 12:00:00 AM EST eCW1 ([facility]) Fluconazole 150 MG Oral Tablet [Diflucan] 06/20/2020 12:00:00 AM ED T eCW1 ([facility]) Doxycycline Monohydrate 100 MG Oral Tablet 06/20/2020 12:00:00 AM E DT eCW1 ([facility])
--- NOTE | 2020-09-23 11:01 | REP ---
INDICATION: pain over ball foot into 3rd toe, nki. COMPARISON: None. FINDINGS: The joint spaces are symmetric and relatively well maintained. There is no evidence of acute fracture or destructive osseous lesion. IMPRESSION: Negative. <Electronically signed by Russ Herndon > 09/23/20 1050
--- NOTE | 2020-09-23 11:05 | REP ---
INDICATION: fmh clots, calf pain into foot COMPARISON: None. TECHNIQUE: Real time compression and duplex Doppler interrogation of the left lower extremity deep venous system is performed. FINDINGS: The left common femoral, superficial femoral and popliteal veins are fully compressible with transducer pressure and demonstrate normal spontaneous and phasic flow, without evidence of deep venous thrombosis. IMPRESSION: No evidence of deep venous thrombosis of the left lower extremity femoral popliteal venous system. <Electronically signed by Felipe Stubbs > 09/23/20 1107
[2020-09-23 11:36] VITALS: BP 136/81
== END 2020-09-23 11:38 | disposition home or self-care (01) ==
LOC: M ED 09:26
DX: M77.42 Metatarsalgia, left foot (principal); Z88.0 Allergy status to penicillin; Z79.3 Long term (current) use of hormonal contraceptives

== ENCOUNTER → 2020-10-29 | Outpatient (CLI) | payer OTHER ==
[~2020-10-29] MED LIST changes: +ALBU8.5H INH; +CETI5TAB2 PO; +DESO1TAB27; +MAXA10TA15 PO; +OMEP-221 PO; +PANT40TA29 PO; +VALA1TAB5 PO
== END ==
LOC: M LABSMTC 09:26
PROVIDERS: ATTEND Anesthesiology
DX: Z01.812 Encounter for preprocedural laboratory examination (principal); Z20.822 Contact with and (suspected) exposure to COVID-19

== ENCOUNTER 2020-11-03 11:24 | Day surgery (SDC) | payer OTHER ==
[~2020-11-03] VITALS: Ht 170.2 cm; Wt 70.2 kg
[~2020-11-03 11:24] MED LIST changes: +LIDOCAINE 2% 100MG/5ML SDV (FOR ANES.) As Ordered ONE; +NS 1,000 ML IV ONE; +fentaNYL 100 MCG/2 ML INJECTION (J3010) As Ordered ONE; +propofoL 200 MG/20 ML VIAL As Ordered ONE
[2020-11-03] MEDS ORDERED: propofoL 200 MG/20 ML VIAL As Ordered ONE (13:33)
--- NOTE | 2020-11-03 13:52 | ROOR ---
Patient Name: Samantha Peralta Procedure Date: 11/03/2020 1:17 PM Date of : 1980 Age: 39 Room: [facility] Gender: Female Note Status: Finalized Procedure: Upper GI endoscopy Indications: Nausea with vomiting Providers: Panda Carreno MD Referring MD: Andreina Lopez NP Requesting Provider: Medicines: Monitored Anesthesia Care Complications: No immediate complications. Procedure: Pre-Anesthesia Assessment: - Prior to the procedure, a History and Physical was performed, and patient medications and allergies were reviewed. The patient is competent. The risks and benefits of the procedure and the sedation options and risks were discussed with the patient. All questions were answered and informed consent was obtained. Patient identification and proposed procedure were verified by the physician, the nurse and the anesthesiologist in the procedure room. Mental Status Examination: alert and oriented. Airway Examination: normal oropharyngeal airway and neck mobility. Respiratory Examination: clear to auscultation. CV Examination: normal. Prophylactic Antibiotics: The patient does not require prophylactic antibiotics. Prior Anticoagulants: The patient has taken no previous anticoagulant or antiplatelet agents. ASA Grade Assessment: II - A patient with mild systemic disease. After reviewing the risks and benefits, the patient was deemed in satisfactory condition to undergo the procedure. The anesthesia plan was to use monitored anesthesia care (MAC). Immediately prior to administration of medications, the patient was re-assessed for adequacy to receive sedatives. The heart rate, respiratory rate, oxygen saturations, blood pressure, adequacy of pulmonary ventilation, and response to care were monitored throughout the procedure. The physical status of the patient was re-assessed after the procedure. The Endoscope was introduced through the mouth, and advanced to the second part of duodenum. The upper GI endoscopy was accomplished without difficulty. The patient tolerated the procedure well. Findings: Patchy, white plaques were found in the middle third of the esophagus and in the lower third of the esophagus. Biopsies were taken with a cold forceps for histology. Verification of patient identification for the specimen was done by the physician and nurse using the patient's name, date and medical record number. Estimated blood loss was minimal. The Z-line was regular and was found 40 cm from the incisors. Patchy mild inflammation characterized by erythema, friability and granularity was found in the gastric antrum. Biopsies were taken with a cold forceps for Helicobacter pylori testing. The duodenal bulb and second portion of the duodenum were normal. Biopsies for histology were taken with a cold forceps for evaluation of celiac disease. Impression: - Esophageal plaques were found, suspicious for candidiasis. Biopsied. - Z-line regular, 40 cm from the incisors. - Gastritis. Biopsied. - Normal duodenal bulb and second portion of the duodenum. Biopsied. Recommendation: - Patient has a contact number available for emergencies. The signs and symptoms of potential delayed complications were discussed with the patient. Return to normal activities tomorrow. Written discharge instructions were provided to the patient. - High fiber diet. - Continue present medications. - Await pathology results. - Use sucralfate suspension 1 gram PO QID for 2 weeks. - Clear the throat after the use of any inhaler medications. - Telephone GI clinic for pathology results in 2 weeks. - Return to primary care physician. Procedure Code(s): --- Professional --- 77418, Esophagogastroduodenoscopy, flexible, transoral; with biopsy, single or multiple Diagnosis Code(s): --- Professional --- K22.9, Disease of esophagus, unspecified K29.70, Gastritis, unspecified, without bleeding R11.2, Nausea with vomiting, unspecified CPT copyright 2019 [employer]. All rights reserved. The codes documented in this report are preliminary and upon loss prevention analyst review may be revised to meet current compliance requirements. Panda Carreno MD Panda Carreno MD 11/03/2020 1:51:33 PM Electronically signed by Panda Carreno MD Number of Addenda: 0 Note Initiated On: 11/03/2020 1:17 PM Estimated Blood Loss: Estimated blood loss was minimal.
[2020-11-03 14:00] VITALS: BP 136/83
== END 2020-11-03 14:11 | disposition home or self-care (01) ==
LOC: M OPP 11:24
PROVIDERS: ATTEND Internal Medicine Gastroenterology
DX: K29.70 Gastritis, unspecified, without bleeding (principal); K22.9 Disease of esophagus, unspecified; R11.2 Nausea with vomiting, unspecified; Z79.3 Long term (current) use of hormonal contraceptives; Z79.899 Other long term (current) drug therapy; Z88.0 Allergy status to penicillin
CPT/HCPCS: 43239; 88305; J3010

== ENCOUNTER 2021-01-13 11:28 | Emergency (ER) | payer OTHER ==
[~2021-01-13] VITALS: Ht 170.2 cm; Wt 72.1 kg
[~2021-01-13 11:28] MED LIST changes: -LIDOCAINE 2% 100MG/5ML SDV (FOR ANES.) As Ordered ONE; -NS 1,000 ML IV ONE; -fentaNYL 100 MCG/2 ML INJECTION (J3010) As Ordered ONE; -propofoL 200 MG/20 ML VIAL As Ordered ONE
[2021-01-13] MEDS ORDERED: DESO1TAB27 PO (11:41)
[2021-01-13] MEDS ORDERED: AFRI0.058 (13:42)
[2021-01-13] MEDS ORDERED: KETO10TAB PO (13:42)
[2021-01-13 13:50] VITALS: BP 136/75
[2021-01-13] MEDS ORDERED: DOXY100C37 PO (18:32)
== END 2021-01-13 13:50 | disposition home or self-care (01) ==
LOC: M ED 11:28
DX: R51.9 Headache, unspecified (principal); Z79.51 Long term (current) use of inhaled steroids; Z79.899 Other long term (current) drug therapy; Z88.0 Allergy status to penicillin

== ENCOUNTER 2021-05-19 07:16 | Emergency (ER) | payer OTHER ==
[~2021-05-19] VITALS: Ht 170.2 cm; Wt 73.3 kg
[~2021-05-19 07:16] MED LIST changes: +AFRI0.058; +DESO1TAB27 PO; +DOXY1CAP62 PO; +KETO10TAB PO
[2021-05-19] MEDS ORDERED: ACET-897 PO (07:29)
[2021-05-19] MEDS ORDERED: CEFD1CAP8 (07:29)
[2021-05-19] MEDS ORDERED: KETOROLAC 30 MG/ML 1ML VIAL IM ONE (09:20)
[2021-05-19] MEDS ORDERED: CYCLOBENZAPRINE 10MG TABLET PO ONE (09:20)
[2021-05-19] MEDS ORDERED: LIDOCAINE 5% (LIDODERM) PATCH TD ONE (09:20)
[2021-05-19 11:02] VITALS: O2SAT 99
[2021-05-19] MEDS ORDERED: PROAAER10 INH (11:40)
[2021-05-19] MEDS ORDERED: LIDO5DIS41 TOP (11:40)
[2021-05-19] MEDS ORDERED: TESS100C PO (11:40)
[2021-05-19] MEDS ORDERED: CYCL5TAB PO (11:40)
[2021-05-19 11:45] VITALS: BP 136/85
[2021-05-19] MEDS ORDERED: **NOTE PATIENT COMMENT** MISC XX SCH (21:00)
== END 2021-05-19 11:53 | disposition home or self-care (01) ==
LOC: M ED 07:16
DX: U07.1 COVID-19 (principal); M62.830 Muscle spasm of back; G89.29 Other chronic pain; M54.5 Low back pain
CPT/HCPCS: 81001; 84702; 96372; 99284; J1885

== ENCOUNTER 2021-05-21 08:40 | Emergency (ER) | payer OTHER ==
[~2021-05-21] VITALS: Ht 170.2 cm; Wt 74.1 kg
[~2021-05-21 08:40] MED LIST changes: +ACET-897 PO; +CEFD1CAP8; +CYCL5TAB PO; +LIDO5DIS41 TOP; +PROAAER10 INH; +TESS100C PO
[2021-05-21] MEDS ORDERED: KETOROLAC 30 MG/ML 1ML VIAL IV ONE (10:00)
[2021-05-21] MEDS ORDERED: diazePAM 10MG/2ML SYRINGE (J3360 PER 5MG) IV ONE (10:00)
[2021-05-21] MEDS ORDERED: LIDOCAINE 5% (LIDODERM) PATCH TD ONE (10:00)
[2021-05-21] MEDS ORDERED: NAPR-837 PO (11:20)
[2021-05-21] MEDS ORDERED: METH-1165 PO (11:20)
[2021-05-21] MEDS ORDERED: ASPE4PAD TOP (11:20)
[2021-05-21 11:27] VITALS: BP 124/76
[2021-05-21] MEDS ORDERED: **NOTE PATIENT COMMENT** MISC XX SCH (21:00)
== END 2021-05-21 11:40 | disposition home or self-care (01) ==
LOC: M ED 08:40
DX: M62.830 Muscle spasm of back (principal); U07.1 COVID-19; Z88.0 Allergy status to penicillin
CPT/HCPCS: 96374; 96375; 99284; J1885; J3360

== ENCOUNTER → 2021-09-06 | Outpatient (REF) | payer OTHER ==
[~2021-09-06] MED LIST changes: +ASPE4PAD TOP; +DOXY-443 PO; -DOXY1CAP62 PO; +METH-1165 PO; +NAPR-837 PO
[2021-09-06 17:26] LABS: APPEARANCE, URINE CLOUDY (CLEAR); BACTERIA, URINE AUTO NEGATIVE (NEGATIVE); BILIRUBIN, URINE AUTO NEGATIVE (NEGATIVE); BLOOD, URINE BLOOD NEGATIVE (NEGATIVE); CALCIUM OXALATE CRYSTALS SMALL; COLOR, URINE YELLOW (YELLOW); GLUCOSE, URINE (UA) AUTO NEGATIVE (NEGATIVE); KETONE, URINE AUTO TRACE mg/dL (NEGATIVE); LEUKOCYTE ESTERASE, URINE AUTO 1+ (NEGATIVE); MUCUS, URINE SMALL (NEGATIVE); NITRITE, URINE AUTO NEGATIVE (NEGATIVE); PROTEIN, URINE AUTO 1+ mg/dL (NEGATIVE); RBC, URINE AUTO 1 /HPF (0-3); SQUAMOUS EPITHELIAL CELL UR AU 6 /HPF (0-6); UROBILINOGEN, URINE AUTO 0.2 mg/dL (0.0-2.0); WBC, URINE AUTO 2 /HPF (0-3)
== END ==
LOC: M LAB REF 17:02
PROVIDERS: ATTEND Physician Assistant
DX: R30.0 Dysuria (principal)

== ENCOUNTER → 2021-11-12 | Outpatient (REF) | payer OTHER ==
[~2021-11-12] MED LIST changes: -CEFD1CAP8; +CEFD300C41; -FLUC150T; +FLUC150T9; -OMEP-221 PO; +OMEP40CA5 PO
[2021-11-12 06:38] LABS: AMORPHOUS SEDIMENT LARGE (NEGATIVE); APPEARANCE, URINE TURBID (CLEAR); BACTERIA, URINE AUTO NEGATIVE (NEGATIVE); BILIRUBIN, URINE AUTO NEGATIVE (NEGATIVE); BLOOD, URINE BLOOD NEGATIVE (NEGATIVE); COLOR, URINE AMBER (YELLOW); GLUCOSE, URINE (UA) AUTO NEGATIVE (NEGATIVE); KETONE, URINE AUTO NEGATIVE (NEGATIVE); LEUKOCYTE ESTERASE, URINE AUTO 1+ (NEGATIVE); MUCUS, URINE SMALL (NEGATIVE); NITRITE, URINE AUTO NEGATIVE (NEGATIVE); PROTEIN, URINE AUTO NEGATIVE (NEGATIVE); RBC, URINE AUTO 0 /HPF (0-3); SPECIFIC GRAVITY URINE AUTO 1.026 (1.002-1.035); SQUAMOUS EPITHELIAL CELL UR AU 4 /HPF (0-6); UROBILINOGEN, URINE AUTO 0.2 mg/dL (0.0-2.0); WBC, URINE AUTO 0 /HPF (0-3)
== END ==
LOC: M LAB REF 01:28
PROVIDERS: ATTEND Physician Assistant Medical
DX: R30.0 Dysuria (principal)

== ENCOUNTER 2021-12-22 22:33 | Emergency (ER) | payer OTHER ==
[2021-12-22 22:35] VITALS: BP 137/79
== END 2021-12-23 00:50 | disposition left against medical advice (07) ==
LOC: M ED 22:33
DX: Z53.21 Procedure and treatment not carried out due to patient leaving prior to being seen by health care provider (principal)

== ENCOUNTER → 2022-03-31 | Outpatient (REF) | payer OTHER ==
[~2022-03-31] MED LIST changes: -AFRI0.058; +OXYM15SP2
== END ==
LOC: M LAB REF 09:40
PROVIDERS: ATTEND Physician Assistant Medical
DX: J02.9 Acute pharyngitis, unspecified (principal)

== ENCOUNTER → 2022-05-28 | Outpatient (REF) | payer OTHER | LOC: M SFHCPLAZ 13:06 | PROVIDERS: ATTEND Physician Assistant | DX: B34.9 Viral infection, unspecified (principal); J02.9 Acute pharyngitis, unspecified ==

== ENCOUNTER → 2022-09-28 | Outpatient (CLI) | payer OTHER ==
[2022-09-28 10:34] LABS: BASO % 0.4 % (0.0-1.0); EOS # 0.1 10^3/uL (0.0-0.5); EOS % 1.3 % (0.0-3.0); HEMATOCRIT 37.9 % (36.0-47.0); HEMOGLOBIN 12.7 g/dl (12.0-15.5); LYMPH # 3.2 10^3/uL (1.5-5.0); LYMPH % 40.7 % (24.0-44.0); MEAN CORPUSCULAR HEMOGLOBIN 29.5 pg (27.0-33.0); MEAN CORPUSCULAR HGB CONC 33.5 g/dl (32.0-36.5); MEAN CORPUSCULAR VOLUME 87.9 fl (80.0-96.0); MONO # 0.6 10^3/uL (0.0-0.8); MONO % 7.2 % (2.0-8.0); NEUTROPHILS # 3.9 10^3/uL (1.5-8.5); NEUTROPHILS % 50.1 % (36.0-66.0); PLATELET COUNT, AUTOMATED 281 10^3/uL (150-450); RED BLOOD COUNT 4.31 10^6/uL (4.00-5.40); WHITE BLOOD COUNT 7.7 10^3/uL (4.0-10.0)
[2022-09-28 10:44] LABS: ERYTHROCYTE SEDIMENTATION RATE 19 mm/hr (0-20)
[2022-09-28 11:04] LABS: TOTAL 25(OH) VITAMIN D 73.4 NG/ML (20.0-100.0)
[2022-09-28 11:05] LABS: ALBUMIN 3.4 G/DL (3.2-5.2); ALKALINE PHOSPHATASE 40 U/L (46-116); ALT/SGPT 17 U/L (7.0-40); AST/SGOT 13 U/L (<34); BILIRUBIN,TOTAL 0.6 MG/DL (0.3-1.2); BLOOD UREA NITROGEN 17 MG/DL (9-23); CALCIUM LEVEL 9.2 MG/DL (8.5-10.1); CARBON DIOXIDE LEVEL 27 MMOL/L (20-31); CHLORIDE LEVEL 106 MMOL/L (98-107); CREATININE FOR GFR 0.73 MG/DL (0.55-1.30); GLOMERULAR FILTRATION RATE > 60.0 (>58); GLUCOSE, FASTING 113 MG/DL (60-100); POTASSIUM SERUM 3.7 MMOL/L (3.5-5.1); SODIUM LEVEL 142 MMOL/L (136-145); TOTAL PROTEIN 6.8 G/DL (5.7-8.2)
[2022-09-28 11:06] LABS: RHEUMATOID FACTOR QUANT < 3.5 IU/ML (<14)
[2022-09-28 11:07] LABS: FOLATE 18.4 NG/ML (>5.4); VITAMIN B12 LEVEL 347 PG/ML (211-911)
[2022-09-29 13:09] LABS: ANTINUCLEAR ANTIBODIES DIRECT Negative (Negative)
== END ==
LOC: M LAB 09:49
PROVIDERS: ATTEND Psychiatry & Neurology Neurology
DX: R51.9 Headache, unspecified (principal)

== ENCOUNTER → 2022-10-02 | Outpatient (CLI) | payer OTHER | LOC: M RAD 11:21 | PROVIDERS: ATTEND Physician Assistant Medical | DX: M54.50 Low back pain, unspecified (principal) ==

== ENCOUNTER 2022-10-05 17:54 | Emergency (ER) | payer OTHER ==
[~2022-10-05] VITALS: Ht 170.2 cm; Wt 74.6 kg
[2022-10-05 17:55] VITALS: BP 138/84
[2022-10-05] MEDS ORDERED: ACETAMINOPHEN 1000MG 100ML IV BAG IV ONE (20:05)
[2022-10-05] MEDS ORDERED: NS 1,000 ML IV ONE (20:05)
[2022-10-05] MEDS ORDERED: LIDOCAINE 5% (LIDODERM) PATCH TD ONE (20:05)
[2022-10-05] MEDS ORDERED: methylPREDNISolone 125MG 2ML VIAL IV ONE (20:05)
[2022-10-05] MEDS ORDERED: diazePAM 10MG/2ML SYRINGE IV ONE (20:05)
[2022-10-05 20:27] LABS: APPEARANCE, URINE MANUAL HAZY (CLEAR); COLOR, URINE MANUAL LT YELLOW (YELLOW)
[2022-10-05 20:28] LABS: BILIRUBIN, URINE MANUAL NEGATIVE (NEGATIVE); GLUCOSE, URINE (UA) MANUAL NEGATIVE (NEGATIVE); KETONE, URINE MANUAL 1+ mg/dL (NEGATIVE); NITRITE, URINE MANUAL NEGATIVE (NEGATIVE); PROTEIN, URINE MANUAL 1+ mg/dL (NEGATIVE); UROBILINOGEN, URINE MANUAL NORMAL (NORMAL)
[2022-10-05 20:29] LABS: BLOOD URINE MANUAL NEGATIVE (NEGATIVE); LEUKOCYTE ESTERASE, URINE MAN POSITIVE (NEGATIVE)
[2022-10-05 20:31] LABS: BASO % 0.2 % (0.0-1.0); HEMATOCRIT 40.8 % (36.0-47.0); HEMOGLOBIN 13.8 g/dl (12.0-15.5); LYMPH # 3.2 10^3/uL (1.5-5.0); LYMPH % 23.5 % (24.0-44.0); MEAN CORPUSCULAR HGB CONC 33.8 g/dl (32.0-36.5); MEAN CORPUSCULAR VOLUME 88.7 fl (80.0-96.0); NEUTROPHILS # 9.4 10^3/uL (1.5-8.5); PLATELET COUNT, AUTOMATED 376 10^3/uL (150-450); WHITE BLOOD COUNT 13.6 10^3/uL (4.0-10.0)
[2022-10-05] MEDS ORDERED: ISOVUE-370 76% 100ML VIAL As Ordered ONE (20:35)
[2022-10-05 20:36] LABS: SQUAMOUS EPITHELIAL CELL URINE LARGE AMOUNT /hpf (SMALL AMT)
[2022-10-05 20:37] LABS: TRANSITIONAL EPI CELLS, URINE SMALL AMOUNT /hpf; WBC, URINE 20-30 /hpf (0-3)
[2022-10-05 20:38] LABS: BACTERIA, URINE MOD AMOUNT
[2022-10-05 20:39] LABS: HYALINE CAST, URINE NONE SEEN /lpf (0-1)
[2022-10-05 20:44] LABS: ERYTHROCYTE SEDIMENTATION RATE 18 mm/hr (0-20)
[2022-10-05 21:00] LABS: BLOOD UREA NITROGEN 18 MG/DL (9-23); CALCIUM LEVEL 9.3 MG/DL (8.5-10.1); CARBON DIOXIDE LEVEL 27 MMOL/L (20-31); CHLORIDE LEVEL 105 MMOL/L (98-107); CREATININE FOR GFR 0.65 MG/DL (0.55-1.30); GLOMERULAR FILTRATION RATE > 60.0 (>58); GLUCOSE, FASTING 117 MG/DL (60-100); POTASSIUM SERUM 4.5 MMOL/L (3.5-5.1); SODIUM LEVEL 141 MMOL/L (136-145)
[2022-10-05 21:58] LABS: C REACTIVE PROTEIN QUANTITATIV < 0.40 MG/DL (<1.0)
[2022-10-05] MEDS ORDERED: LIDO5DIS41 TD (22:55)
[2022-10-05] MEDS ORDERED: KETO10TAB PO (22:55)
[2022-10-05] MEDS ORDERED: BACL10TA2 PO (22:55)
[2022-10-05] MEDS ORDERED: MACR100C43 PO (22:56)
== END 2022-10-05 23:07 | disposition home or self-care (01) ==
LOC: M ED 17:54
DX: N39.0 Urinary tract infection, site not specified (principal); K38.8 Other specified diseases of appendix; M54.50 Low back pain, unspecified; J45.909 Unspecified asthma, uncomplicated; Z88.0 Allergy status to penicillin; Z79.51 Long term (current) use of inhaled steroids; Z79.891 Long term (current) use of opiate analgesic; Z79.899 Other long term (current) drug therapy

== ENCOUNTER → 2022-11-06 | Outpatient (REF) | payer OTHER ==
[~2022-11-06] MED LIST changes: +BACL10TA2 PO; +LIDO5DIS41 TD; +MACR100C43 PO
== END ==
LOC: M SFHCWAGY 13:13
PROVIDERS: ATTEND Specialist
DX: N85.00 Endometrial hyperplasia, unspecified (principal)

== ENCOUNTER 2022-11-19 18:15 | Emergency (ER) | payer OTHER ==
[~2022-11-19] VITALS: Ht 170.2 cm; Wt 74.6 kg
[~2022-11-19 18:15] MED LIST changes: +IBUP-1022 PO
[2022-11-19] MEDS ORDERED: NS 500 ML IV ONE ×2 (19:45→21:15)
[2022-11-19 20:14] LABS: BASO # 0.1 10^3/uL (0.0-0.2); BASO % 0.3 % (0.0-1.0); EOS # 0.1 10^3/uL (0.0-0.5); EOS % 0.4 % (0.0-3.0); HEMATOCRIT 37.1 % (36.0-47.0); HEMOGLOBIN 12.6 g/dl (12.0-15.5); LYMPH # 3.7 10^3/uL (1.5-5.0); LYMPH % 18.7 % (24.0-44.0); MEAN CORPUSCULAR HEMOGLOBIN 29.2 pg (27.0-33.0); MEAN CORPUSCULAR VOLUME 85.9 fl (80.0-96.0); MONO # 1.4 10^3/uL (0.0-0.8); MONO % 7.3 % (2.0-8.0); NEUTROPHILS # 14.3 10^3/uL (1.5-8.5); NEUTROPHILS % 72.8 % (36.0-66.0); PLATELET COUNT, AUTOMATED 435 10^3/uL (150-450); RED BLOOD COUNT 4.32 10^6/uL (4.00-5.40); WHITE BLOOD COUNT 19.6 10^3/uL (4.0-10.0)
[2022-11-19 20:46] LABS: THYROID STIMULATING HORMONE 2.687 uIU/ML (0.55-4.78)
[2022-11-19 20:47] LABS: THYROXINE (T4) 13.4 UG/DL (4.5-10.9)
[2022-11-19 20:48] LABS: FREE THYROXINE INDEX 3.6 % (1.3-4.8)
[2022-11-19] MEDS ORDERED: ISOVUE-370 76% 100ML VIAL As Ordered ONE (21:24)
[2022-11-19 22:12] LABS: APPEARANCE, URINE CLEAR (CLEAR); BACTERIA, URINE AUTO NEGATIVE (NEGATIVE); BILIRUBIN, URINE AUTO NEGATIVE (NEGATIVE); BLOOD, URINE BLOOD NEGATIVE (NEGATIVE); COLOR, URINE STRAW (YELLOW); GLUCOSE, URINE (UA) AUTO NEGATIVE (NEGATIVE); KETONE, URINE AUTO NEGATIVE (NEGATIVE); LEUKOCYTE ESTERASE, URINE AUTO TRACE (NEGATIVE); MUCUS, URINE SMALL (NEGATIVE); NITRITE, URINE AUTO NEGATIVE (NEGATIVE); PROTEIN, URINE AUTO NEGATIVE (NEGATIVE); RBC, URINE AUTO 0 /HPF (0-3); SPECIFIC GRAVITY URINE AUTO 1.034 (1.002-1.035); SQUAMOUS EPITHELIAL CELL UR AU 2 /HPF (0-6); UROBILINOGEN, URINE AUTO 0.2 mg/dL (0.0-2.0); WBC, URINE AUTO 2 /HPF (0-3)
[2022-11-19 23:12] VITALS: BP 147/88
[2022-11-20] MEDS ORDERED: KETOROLAC 30 MG/ML 1ML VIAL As Ordered ONE (00:39)
[2022-11-20] MEDS ORDERED: KETOROLAC 30 MG/ML 1ML VIAL IV ONE (00:40)
[2022-11-20] MEDS ORDERED: ONDANSETRON 4MG 2ML VIAL IV ONE (00:40)
[2022-11-20] MEDS ORDERED: OXYCODONE/APAP 5MG/325MG(HOME DOSE PACK) PO ONE (00:45)
[2022-11-20] MEDS ORDERED: METR-265 PO (00:56)
[2022-11-20] MEDS ORDERED: MIRA3350 PO (00:56)
[2022-11-20] MEDS ORDERED: PERCOCET PO (00:56)
[2022-11-20] MEDS ORDERED: CEFD300C41 PO (00:56)
[2022-11-20] MEDS ORDERED: ONDA4TAB6 PO (00:56)
== END 2022-11-20 01:11 | disposition home or self-care (01) ==
LOC: M ED 18:15
DX: R10.2 Pelvic and perineal pain (principal); N85.2 Hypertrophy of uterus; N80.00 Endometriosis of the uterus, unspecified; D72.829 Elevated white blood cell count, unspecified; I10 Essential (primary) hypertension; R00.0 Tachycardia, unspecified; I45.10 Unspecified right bundle-branch block; J45.909 Unspecified asthma, uncomplicated; Z88.0 Allergy status to penicillin; Z79.52 Long term (current) use of systemic steroids; Z79.2 Long term (current) use of antibiotics; Z79.83 Long term (current) use of bisphosphonates; Z79.899 Other long term (current) drug therapy
CPT/HCPCS: 36415; 74177; 80047; 81001; 84436; 84443; 84479; 85025; 93005; 96361; 96374; 99284; J1885; J2405

== ENCOUNTER → 2022-11-27 | Outpatient (CLI) | payer OTHER ==
[~2022-11-27] MED LIST changes: +CEFD300C41 PO; +METR-265 PO; +MIRA3350 PO; +ONDA4TAB6 PO; +PERCOCET PO
== END ==
LOC: M LABSMTC 08:31
PROVIDERS: ATTEND Anesthesiology
DX: Z01.818 Encounter for other preprocedural examination (principal); Z11.52 Encounter for screening for COVID-19

== ENCOUNTER 2022-11-30 06:00 | Day surgery (SDC) | payer OTHER ==
[~2022-11-30] VITALS: Ht 170.2 cm; Wt 71.7 kg
[~2022-11-30 06:00] MED LIST changes: +ceFAZolin SOD 2 GM in IV 1 EA IV ONE
[2022-11-30] MEDS ORDERED: LR 1,000 ML IV SCH ×3 (06:10→09:55)
[2022-11-30 06:39] LABS: HEMATOCRIT 38.7 % (36.0-47.0); HEMOGLOBIN 13.2 g/dl (12.0-15.5); MEAN CORPUSCULAR HEMOGLOBIN 29.7 pg (27.0-33.0); MEAN CORPUSCULAR HGB CONC 34.1 g/dl (32.0-36.5); PLATELET COUNT, AUTOMATED 434 10^3/uL (150-450); RED BLOOD COUNT 4.45 10^6/uL (4.00-5.40); WHITE BLOOD COUNT 9.5 10^3/uL (4.0-10.0)
[2022-11-30] MEDS ORDERED: BUPIVACAINE HCL 0.25% 10ML VIAL As Ordered ONE (07:17)
[2022-11-30 07:26] LABS: HCG, SERUM QUALITATIVE NEGATIVE (NEGATIVE)
[2022-11-30] MEDS ORDERED: MIDAZOLAM INJ 2MG/2ML VIAL As Ordered ONE (07:54)
[2022-11-30] MEDS ORDERED: KETOROLAC 60MG 2ML VIAL As Ordered ONE (07:54)
[2022-11-30] MEDS ORDERED: LIDOCAINE 2% 100MG/5ML SDV (FOR ANES.) As Ordered ONE (07:54)
[2022-11-30] MEDS ORDERED: fentaNYL 100 MCG/2 ML INJECTION As Ordered ONE (07:54)
[2022-11-30] MEDS ORDERED: HYDROmorphone HCL 2MG/ML 1ML VIAL As Ordered ONE (07:54)
[2022-11-30] MEDS ORDERED: ROCURONIUM BROMIDE 50MG/5ML VIAL As Ordered ONE ×2 (07:54→08:41)
[2022-11-30] MEDS ORDERED: SUGAMMADEX SODIUM 500 MG/5 ML VIAL (BRIDION) As Ordered ONE (07:54)
[2022-11-30] MEDS ORDERED: ONDANSETRON 4MG 2ML VIAL As Ordered ONE (07:54)
[2022-11-30] MEDS ORDERED: propofoL 200 MG/20 ML VIAL As Ordered ONE (07:54)
[2022-11-30] MEDS ORDERED: ACETAMINOPHEN 1000MG 100ML IV BAG As Ordered ONE (07:54)
[2022-11-30] MEDS ORDERED: HYDROMORPHONE HCL 0.5 MG/ 0.5 ML SYRINGE IV PRN (09:10)
[2022-11-30] MEDS ORDERED: oxyCODONE 5MG TAB PO PRN (09:10)
[2022-11-30] MEDS ORDERED: fentaNYL 100 MCG/2 ML INJECTION IV PRN (09:10)
[2022-11-30] MEDS ORDERED: ONDANSETRON 4MG 2ML VIAL IV PRN (09:10)
[2022-11-30] MEDS ORDERED: OXYC1TAB23 PO (09:33)
[2022-11-30] MEDS ORDERED: IBUP-1022 PO (09:33)
[2022-11-30] MEDS ORDERED: PERCOCET 5MG/325MG TAB PO PRN (09:55)
[2022-11-30 12:20] VITALS: BP 120/75
== END 2022-11-30 12:29 | disposition home or self-care (01) ==
LOC: M SDC 06:00
PROVIDERS: ATTEND Specialist
DX: N85.7 Hematometra (principal); K21.9 Gastro-esophageal reflux disease without esophagitis; G43.909 Migraine, unspecified, not intractable, without status migrainosus; J45.909 Unspecified asthma, uncomplicated; Z88.0 Allergy status to penicillin; Z79.51 Long term (current) use of inhaled steroids; Z79.899 Other long term (current) drug therapy
CPT/HCPCS: 36415; 58571; 84703; 85027; 86850; 86900; 86901; 88307; J0131; J0690; J1100; J1170; J1885; J2250; J2405; J3010; S2900

== ENCOUNTER → 2023-04-20 | Outpatient (REF) | payer OTHER ==
[~2023-04-20] MED LIST changes: -MAXA10TA15 PO; +OXYC1TAB23 PO; +RIZA10TA66 PO; -ceFAZolin SOD 2 GM in IV 1 EA IV ONE
[2023-04-20 15:48] LABS: APPEARANCE, URINE CLOUDY (CLEAR); BACTERIA, URINE AUTO NEGATIVE (NEGATIVE); BILIRUBIN, URINE AUTO NEGATIVE (NEGATIVE); BLOOD, URINE BLOOD NEGATIVE (NEGATIVE); COLOR, URINE YELLOW (YELLOW); GLUCOSE, URINE (UA) AUTO NEGATIVE (NEGATIVE); KETONE, URINE AUTO NEGATIVE (NEGATIVE); LEUKOCYTE ESTERASE, URINE AUTO NEGATIVE (NEGATIVE); MUCUS, URINE SMALL (NEGATIVE); NITRITE, URINE AUTO NEGATIVE (NEGATIVE); PROTEIN, URINE AUTO NEGATIVE (NEGATIVE); RBC, URINE AUTO 0 /HPF (0-3); SPECIFIC GRAVITY URINE AUTO 1.019 (1.002-1.035); SQUAMOUS EPITHELIAL CELL UR AU 15 /HPF (0-6); UROBILINOGEN, URINE AUTO 0.2 mg/dL (0.0-2.0); WBC, URINE AUTO 1 /HPF (0-3)
== END ==
LOC: M LAB REF 14:59
PROVIDERS: ATTEND Physician Assistant Medical
DX: N39.0 Urinary tract infection, site not specified (principal)

== ENCOUNTER → 2023-08-07 | Outpatient (REF) | payer OTHER ==
[~2023-08-07] MED LIST changes: -CEFD300C41; -CEFD300C41 PO; +CEFD300C42; +CEFD300C42 PO
== END ==
LOC: M LAB REF 16:43
PROVIDERS: ATTEND Physician Assistant
DX: J02.9 Acute pharyngitis, unspecified (principal)

== ENCOUNTER → 2023-11-07 | Outpatient (CLI) | payer OTHER ==
[~2023-11-07] MED LIST changes: +CEFD1CAP9; +CEFD1CAP9 PO; -CEFD300C42; -CEFD300C42 PO
== END ==
LOC: M PLAIMG 08:22
PROVIDERS: ATTEND Physician Assistant
DX: M54.50 Low back pain, unspecified (principal)

== ENCOUNTER → 2023-12-09 | Outpatient (CLI) | payer OTHER | LOC: M SLEEP HO 11:14 | PROVIDERS: ATTEND Family Medicine | DX: R06.83 Snoring (principal) ==

== ENCOUNTER → 2023-12-23 | Outpatient (CLI) | payer OTHER | LOC: M RAD 11:32 | PROVIDERS: ATTEND Family Medicine | DX: M54.50 Low back pain, unspecified (principal) ==

== ENCOUNTER → 2024-04-27 | Outpatient (REF) | payer OTHER ==
[~2024-04-27] MED LIST changes: +DOXY-323 PO; -DOXY-443 PO; +FLON27.5 NARES; +LORA-1041; +ONDA-282 PO; -ONDA4TAB6 PO
== END ==
LOC: M LAB REF 20:58
PROVIDERS: ATTEND Physician Assistant Medical
DX: R50.9 Fever, unspecified (principal)

== ENCOUNTER → 2024-07-12 | Outpatient (REF) | payer OTHER ==
[~2024-07-12] MED LIST changes: -DOXY-323 PO; +DOXY-441 PO
== END ==
LOC: M LAB REF 09:17
PROVIDERS: ATTEND Physician Assistant Medical
DX: R05.9 Cough, unspecified (principal)

== ENCOUNTER → 2024-12-15 | Outpatient (CLI) | payer OTHER ==
[~2024-12-15] MED LIST changes: -CYCL5TAB PO; +CYCL5TAB4 PO
== END ==
LOC: M RAD 11:00
PROVIDERS: ATTEND Family Medicine
DX: J32.9 Chronic sinusitis, unspecified (principal)

== ENCOUNTER → 2024-12-23 | Outpatient (CLI) | payer OTHER | LOC: M RAD 14:07 | PROVIDERS: ATTEND Family Medicine | DX: M25.562 Pain in left knee (principal) ==

== ENCOUNTER 2025-06-07 08:40 | Day surgery (SDC) | payer OTHER ==
[~2025-06-07] VITALS: Ht 170.2 cm; Wt 73.5 kg
[~2025-06-07 08:40] MED LIST changes: -IBUP-1022 PO; +IBUP600T42 PO; +LIDO1ADH93 TD; +LIDO1ADH93 TOP; -LIDO5DIS41 TD; -LIDO5DIS41 TOP; +LIDOCAINE 2% 100 MG/5 ML SDV (FOR ANES.) As Ordered ONE
[2025-06-07 10:23] VITALS: TEMP 97.9
[2025-06-07 10:45] VITALS: BP 118/79; O2SAT 99
== END 2025-06-07 10:50 | disposition home or self-care (01) ==
LOC: M OPP 08:40
PROVIDERS: ATTEND Internal Medicine Gastroenterology
DX: Z12.11 Encounter for screening for malignant neoplasm of colon (principal); R12 Heartburn; Z88.0 Allergy status to penicillin; Z79.899 Other long term (current) drug therapy
CPT/HCPCS: 43239; 45378; 88305; J3010

== ENCOUNTER → 2025-07-13 | Outpatient (CLI) | payer MEDICAID ==
[~2025-07-13] MED LIST changes: -LIDOCAINE 2% 100 MG/5 ML SDV (FOR ANES.) As Ordered ONE
== END ==
LOC: M OUTALCOH 07:34
PROVIDERS: ATTEND Psychiatry & Neurology Psychiatry
DX: Z03.89 Encounter for observation for other suspected diseases and conditions ruled out (principal)

== ENCOUNTER → 2025-07-19 | Outpatient (CLI) | payer OTHER ==
[2025-07-19 16:37] LABS: C REACTIVE PROTEIN QUANTITATIV < 0.50 MG/DL (<1.0)
[2025-07-19 16:42] LABS: CORTISOL PM 5.5 UG/DL (3.1-16.7)
[2025-07-22 08:24] LABS: C-PEPTIDE 1.88 ng/mL (0.80-3.85)
[2025-07-22 09:43] LABS: INSULIN TOTAL2 5.2 uIU/mL (<=18.4)
== END ==
LOC: M LAB 14:16
PROVIDERS: ATTEND Family Medicine
DX: R74.8 Abnormal levels of other serum enzymes (principal)

== ENCOUNTER 2025-07-20 07:59 | Outpatient (RCR) | payer MEDICAID | END 2025-08-08 | LOC: M OUTALCOH 07:59 | PROVIDERS: ATTEND Psychiatry & Neurology Psychiatry | DX: Z03.89 Encounter for observation for other suspected diseases and conditions ruled out (principal) ==

== ENCOUNTER → 2025-07-26 | Outpatient (CLI) | payer OTHER ==
[~2025-07-26] MED LIST changes: +ISOVUE-370 76% 100 ML VIAL As Ordered ONE
== END ==
LOC: M RAD 16:55
PROVIDERS: ATTEND Surgery
DX: A09 Infectious gastroenteritis and colitis, unspecified (principal); K38.8 Other specified diseases of appendix
CPT/HCPCS: 74177; Q9967

== ENCOUNTER → 2025-07-27 | Outpatient (REF) | payer OTHER ==
[~2025-07-27] MED LIST changes: -ISOVUE-370 76% 100 ML VIAL As Ordered ONE
== END ==
LOC: M LAB REF 11:56
PROVIDERS: ATTEND Physician Assistant Medical
DX: B34.9 Viral infection, unspecified (principal)